=== PATIENT | female | born 1965 | race African-American/Black ===

== ENCOUNTER 2021-01-23 15:37 | Inpatient (IN) ==
[2021-01-23] MEDS ORDERED: SODIUM CHLORIDE 0.9% 1,000 ML IV STA ×2 (16:23→18:24)
[2021-01-23 17:07] LABS: Basophils % 0.4 % (0.0-0.8); Eosinophils # 0.1 10*3/uL (0.0-0.87); Hemoglobin 13.4 GM/DL (12.0-16.0); Immature Granulocytes % 0.5 %; Immature Granulocytes Absolute 0.05 #; Lymphocytes # 1.8 10*3/uL (1.4-4.0); Lymphocytes % 16.8 % (21.3-54.2); Mean Corpuscular HGB Conc 31.9 GM/DL (32-36); Mean Corpuscular Volume 106.6 FL (87-102); Mean Platelet Volume 10.1 FL (9.6-12.0); Monocytes % 5.1 % (1.7-12.7); NRBC # 0.02 10*3/uL; Neutrophils % 76.2 % (38.7-73.9); Platelet Count 152 T/CUMM (130-400); Red Blood Count 3.94 MC/CUMM (3.8-5.5); Red Cell Distribution Width 13.4 % (9.3-17.3); White Blood Count 10.5 T/CUMM (4-12)
[2021-01-23 17:25] LABS: INR 1.2; Partial Thromboplastin Time 28.8 SECS (23.8-32.1)
[2021-01-23 17:35] LABS: Albumin 3.5 G/DL (3.4-5.0); Bilirubin,Total 0.7 MG/DL (0.20-1.00); Calcium 8.7 MG/DL (8.5-10.1); Osmolality,Calculated 275.5 MOS/KG (273-304); Potassium 3.6 MMOL/L (3.5-5.1); Thyroid Stimulating Hormone 0.301 uIU/ml (0.358-3.74); Total Protein 8.2 G/DL (6.4-8.2)
[2021-01-23] MEDS ORDERED: ALBUTEROL/IPRATROPIUM 3 ML NEB RESP TX STA (17:36)
[2021-01-23] MEDS ORDERED: cefTRIAXone 1,000 MG in SODIUM CHLORIDE 0.9% 100 ML IV STA (17:46)
[2021-01-23 18:02] LABS: ABG Base Excess 9.2 MMOL/L (-2.5-2.5); ABG HCO3 43.6 MMOL/L (20-26); ABG Oxygen Saturation 97.8 % (95-100); ABG TCO2 47.7 MMOL/L (23-27)
[2021-01-23] MEDS ORDERED: NOREPINEPHRINE 4 MG/4 ML VIAL IV ONE ×2 (18:02→21:01)
[2021-01-23 18:06] LABS: ABG PCO2 133.7 MM HG (35-48)
[2021-01-23] MEDS: NOREPINEPHRINE 8 MG in SODIUM CHLORIDE 0.9% 242 ML IV PRN (18:07)
[2021-01-23 18:09] LABS: PT Patient Result 12.8 SECS (10.5-12.0)
[2021-01-23] MEDS ORDERED: VECURONIUM 10 MG VIAL IV STA (18:24)
[2021-01-23] MEDS ORDERED: PIPERACILLIN/TAZOBACTAM 3,375 MG in SODIUM CHLORIDE 0.9% 100 ML IV STA (18:24)
[2021-01-23] MEDS ORDERED: ETOMIDATE 20 MG/10 ML VIAL IV STA (18:24)
[2021-01-23] MEDS ORDERED: VECURONIUM 10 MG VIAL IV ONE (18:25)
[2021-01-23] MEDS ORDERED: ETOMIDATE 20 MG/10 ML VIAL IV ONE (18:25)
[2021-01-23] MEDS ORDERED: MAGNESIUM SULF RIDER 2 GM/50 ML PREMIX IV STA (18:29)
[2021-01-23] MEDS ORDERED: ALBUTEROL 2.5 MG/3 ML NEB RESP TX PRN (18:38)
[2021-01-23] MEDS ORDERED: ACETAMINOPHEN 325 MG TABLET PO PRN (18:46)
[2021-01-23] MEDS ORDERED: ONDANSETRON 4 MG/2 ML VIAL IV PRN (18:46)
[2021-01-23] MEDS ORDERED: MAGNESIUM SULF RIDER 4 GM/100 ML PREMIX IV ONE (18:48)
[2021-01-23] MEDS: SODIUM CHLORIDE 0.9% 1,000 ML IV SCH (19:50)
[2021-01-23] MEDS ORDERED: LORazepam 2 MG/1 ML VIAL ONE ×2 (20:02→22:38)
[2021-01-23] MEDS ORDERED: FOSPHENYTOIN 1,000 MG.PE in SODIUM CHLORIDE 0.9% 250 ML IV STA ×2 (20:05→21:20)
[2021-01-23] MEDS ORDERED: levETIRAcetam 500 MG/5 ML VIAL IV ONE (20:11)
[2021-01-23] MEDS ORDERED: propofoL 200 MG/20 ML VIAL IV ONE (20:16)
[2021-01-23 20:19] LABS: ABG Base Excess 4.7 MMOL/L (-2.5-2.5); ABG HCO3 28.6 MMOL/L (20-26); ABG Oxygen Saturation 98.7 % (95-100); ABG PH 7.298 (7.35-7.45); ABG TCO2 29.9 MMOL/L (23-27)
[2021-01-23] MEDS ORDERED: levETIRAcetam 250 MG TABLET PO SCH (21:00)
[2021-01-23] MEDS ORDERED: LORazepam 2 MG/1 ML VIAL IV ONE ×2 (22:40→23:19)
[2021-01-23] MEDS: ENOXAPARIN 30 MG/0.3 ML SYRINGE SUBCUT SCH (22:56)
[2021-01-23 23:20] LABS: Bacteria,Urine Occasional /HPF (Few); Bilirubin,Urine Negative (Negative); Blood, Urine Small mg/dL (Negative); Glucose,Urine (UA) Negative (Negative); Hyaline Casts,Urine 1 /LPF (0-3); Ketones,Urine Negative (Negative); Mucus,Urine Occasional /LPF (Occasional); Nitrite,Urine Negative (Negative); Protein,Urine 100 MG/DL; RBC,Urine 1 /HPF (0-4); Squamous Epithelial Cell,Urine Occasional /HPF (0-10); Urine Appearance CLEAR (Clear); Urine Color Yellow (Yellow); Urine Specific Gravity 1.011 (1.001-1.035); Urine Urobilinogen < 2.0 EU/DL (<2.0)
[2021-01-24] MEDS: VALPROIC ACID INJ 1,000 MG in SODIUM CHLORIDE 0.9% 100 ML IV SCH ×2 (00:31→12:27)
[2021-01-24 00:41] LABS: ABG Base Excess 5.2 MMOL/L (-2.5-2.5); ABG HCO3 29.1 MMOL/L (20-26); ABG Oxygen Saturation 99.9 % (95-100); ABG PCO2 61.8 MM HG (35-48); ABG PH 7.336 (7.35-7.45); ABG TCO2 29.4 MMOL/L (23-27)
[2021-01-24] MEDS: PHENYTOIN 100 MG/2 ML VIAL IV SCH ×3 (01:03→16:19)
[2021-01-24] MEDS: NOREPINEPHRINE 8 MG in SODIUM CHLORIDE 0.9% 242 ML IV PRN ×3 (01:24→13:08)
[2021-01-24] MEDS: methylPREDNISolone SOD SUC 40 MG/1 ML VIAL IV SCH ×4 (01:45→20:28)
[2021-01-24] MEDS: guaiFENesin/DM ER 600-30 MG TABLET PO SCH ×3 (01:46→20:28)
[2021-01-24] MEDS: traZODone 50 MG TABLET PO SCH ×2 (01:46→20:29)
[2021-01-24] MEDS: FAMOTIDINE 20 MG/2 ML VIAL IV SCH ×3 (01:47→20:28)
[2021-01-24] MEDS: AZITHROMYCIN INJ 500 MG in SODIUM CHLORIDE 0.9% 250 ML IV SCH ×2 (01:48→20:37)
[2021-01-24] MEDS ORDERED: LACOSAMIDE INJ 200 MG in SODIUM CHLORIDE 0.9% 50 ML IV ONE (02:00)
[2021-01-24] MEDS: SODIUM CHLORIDE 0.9% 1,000 ML IV SCH ×4 (02:13→23:01)
[2021-01-24] MEDS ORDERED: PHENOBARBITAL IV ONE (03:00)
[2021-01-24] MEDS ORDERED: SODIUM CHLORIDE 0.9% IV ONE (03:00)
[2021-01-24 04:01] LABS: Barbiturates Screen,Urine Negative (Negative); Benzodiazepines Screen,Urine Positive (Negative); Cannabinoid Screen,Urine Negative (Negative); Opiate Screen,Urine Negative (Negative); Phencyclidine Screen,Urine Negative (Negative)
[2021-01-24 04:06] LABS: ABG Base Excess 7.7 MMOL/L (-2.5-2.5); ABG HCO3 34.8 MMOL/L (20-26); ABG Oxygen Saturation 96.5 % (95-100); ABG PCO2 61.1 MM HG (35-48); ABG PH 7.374 (7.35-7.45); ABG PO2 93.7 MM HG (80-95); ABG TCO2 36.7 MMOL/L (23-27)
[2021-01-24 04:20] LABS: Basophils % 0.4 % (0.0-0.8); Eosinophils % 0.4 % (0.00-10.9); Hematocrit 38.1 VOL% (35.7-47.0); Hemoglobin 12.2 GM/DL (12.0-16.0); Immature Granulocytes % 0.6 %; Immature Granulocytes Absolute 0.06 #; Lymphocytes # 1.8 10*3/uL (1.4-4.0); Lymphocytes % 17.7 % (21.3-54.2); Mean Corpuscular Volume 105.5 FL (87-102); Mean Platelet Volume 10.2 FL (9.6-12.0); Monocytes % 6.2 % (1.7-12.7); NRBC # 0.03 10*3/uL; Neutrophils % 74.7 % (38.7-73.9); Platelet Count 145 T/CUMM (130-400); Red Blood Count 3.61 MC/CUMM (3.8-5.5); Red Cell Distribution Width 13.4 % (9.3-17.3); White Blood Count 10.2 T/CUMM (4-12)
[2021-01-24 04:30] LABS: PT Patient Result 11.1 SECS (10.5-12.0)
[2021-01-24 04:37] LABS: Albumin 2.8 G/DL (3.4-5.0); Bilirubin,Total 0.7 MG/DL (0.20-1.00); Calcium 7.8 MG/DL (8.5-10.1); Osmolality,Calculated 280.2 MOS/KG (273-304); Risk Ratio 6.72; Total Protein 7.6 G/DL (6.4-8.2); VLDL Cholesterol 40.6 MG/DL
[2021-01-24] MEDS: POTASSIUM BICARB EFFERVESCENT 20 MEQ TAB.EFF PER TUBE PRN ×4 (06:00→17:27)
[2021-01-24] MEDS ORDERED: MAGNESIUM SULF RIDER 4 GM/100 ML PREMIX IV PRN (07:31)
[2021-01-24] MEDS ORDERED: EMTRICITAB RILPIVIR TENOFO ALA PO SCH (09:00)
[2021-01-24] MEDS: MIDAZOLAM 100 MG in SODIUM CHLORIDE 0.9% 80 ML IV PRN (11:42)
[2021-01-24 14:17] LABS: ABG PH 7.131 (7.35-7.45)
[2021-01-24 17:03] LABS: Folate 23.26 NG/ML (5.38-24.0)
[2021-01-24] MEDS: cefTRIAXone 1,000 MG in SODIUM CHLORIDE 0.9% 100 ML IV SCH (17:27)
[2021-01-24] MEDS: ENOXAPARIN 30 MG/0.3 ML SYRINGE SUBCUT SCH (20:28)
[2021-01-25] MEDS: VALPROIC ACID INJ 1,000 MG in SODIUM CHLORIDE 0.9% 100 ML IV SCH ×2 (00:01→11:52)
[2021-01-25 00:29] LABS: Potassium 3.5 MMOL/L (3.5-5.1)
[2021-01-25] MEDS: PHENYTOIN 100 MG/2 ML VIAL IV SCH ×3 (00:54→18:13)
[2021-01-25] MEDS: POTASSIUM BICARB EFFERVESCENT 20 MEQ TAB.EFF PER TUBE PRN ×2 (01:09→03:11)
[2021-01-25] MEDS: methylPREDNISolone SOD SUC 40 MG/1 ML VIAL IV SCH ×3 (03:11→20:52)
[2021-01-25 04:40] LABS: ABG Base Excess 10.5 MMOL/L (-2.5-2.5); ABG HCO3 34.2 MMOL/L (20-26); ABG Oxygen Saturation 96.1 % (95-100); ABG PCO2 54.3 MM HG (35-48); ABG PH 7.442 (7.35-7.45); ABG PO2 87.7 MM HG (80-95); ABG TCO2 31.9 MMOL/L (23-27); Basophils % 0.1 % (0.0-0.8); Hematocrit 35.8 VOL% (35.7-47.0); Hemoglobin 11.3 GM/DL (12.0-16.0); Immature Granulocytes % 0.8 %; Immature Granulocytes Absolute 0.07 #; Lymphocytes # 1.3 10*3/uL (1.4-4.0); Lymphocytes % 15.6 % (21.3-54.2); Mean Corpuscular HGB Conc 31.6 GM/DL (32-36); Mean Corpuscular Volume 104.7 FL (87-102); Mean Platelet Volume 10.4 FL (9.6-12.0); Monocytes % 4.3 % (1.7-12.7); NRBC # 0.02 10*3/uL; Neutrophils % 79.2 % (38.7-73.9); Platelet Count 144 T/CUMM (130-400); Red Blood Count 3.42 MC/CUMM (3.8-5.5); Red Cell Distribution Width 13.5 % (9.3-17.3); White Blood Count 8.3 T/CUMM (4-12)
[2021-01-25] MEDS: MIDAZOLAM 100 MG in SODIUM CHLORIDE 0.9% 80 ML IV PRN (04:40)
[2021-01-25 05:04] LABS: Albumin 2.5 G/DL (3.4-5.0); Bilirubin,Total 0.5 MG/DL (0.20-1.00); Calcium 8.1 MG/DL (8.5-10.1); Osmolality,Calculated 279.8 MOS/KG (273-304); Total Protein 7.5 G/DL (6.4-8.2)
[2021-01-25] MEDS: EMTRICITAB RILPIVIR TENOFO ALA PO SCH (08:55)
[2021-01-25] MEDS: FAMOTIDINE 20 MG/2 ML VIAL IV SCH ×2 (08:55→20:53)
[2021-01-25] MEDS: SODIUM CHLORIDE 0.9% 1,000 ML IV SCH ×2 (09:01→10:39)
[2021-01-25] MEDS ORDERED: SODIUM PHOSPHATE INJ 30 MMOL in SODIUM CHLORIDE 0.9% 250 ML IV ONE (10:00)
[2021-01-25] MEDS: INSULIN LISPRO 100 UNIT/ML SUBCUT SCH ×2 (11:40→18:18)
[2021-01-25] MEDS: AZITHROMYCIN 40 MG/ML 15 ML/BOTTLE PO SCH (11:51)
[2021-01-25] MEDS: cefTRIAXone 1,000 MG in SODIUM CHLORIDE 0.9% 100 ML IV SCH (18:14)
[2021-01-25 18:35] LABS: Phenytoin (Dilantin) 4.9 UG/ML (10-20)
[2021-01-25] MEDS: traZODone 50 MG TABLET PO SCH (20:52)
[2021-01-25] MEDS: ENOXAPARIN 40 MG/0.4 ML SYRINGE SUBCUT SCH (20:52)
[2021-01-26] MEDS: VALPROIC ACID INJ 1,000 MG in SODIUM CHLORIDE 0.9% 100 ML IV SCH ×2 (00:48→12:27)
[2021-01-26] MEDS: INSULIN LISPRO 100 UNIT/ML SUBCUT SCH ×4 (00:48→18:55)
[2021-01-26] MEDS: PHENYTOIN 100 MG/2 ML VIAL IV SCH ×3 (00:49→16:49)
[2021-01-26 04:16] LABS: Basophils % 0.3 % (0.0-0.8); Hematocrit 33.8 VOL% (35.7-47.0); Hemoglobin 10.7 GM/DL (12.0-16.0); Immature Granulocytes % 0.6 %; Immature Granulocytes Absolute 0.04 #; Lymphocytes # 1.7 10*3/uL (1.4-4.0); Lymphocytes % 25.1 % (21.3-54.2); Mean Corpuscular HGB Conc 31.7 GM/DL (32-36); Mean Corpuscular Volume 105.6 FL (87-102); Monocytes % 5.3 % (1.7-12.7); Neutrophils % 68.7 % (38.7-73.9); Platelet Count 152 T/CUMM (130-400); Red Cell Distribution Width 13.7 % (9.3-17.3); White Blood Count 6.6 T/CUMM (4-12)
[2021-01-26] MEDS: NOREPINEPHRINE 8 MG in SODIUM CHLORIDE 0.9% 242 ML IV PRN (04:33)
[2021-01-26] MEDS: methylPREDNISolone SOD SUC 40 MG/1 ML VIAL IV SCH ×3 (04:33→22:00)
[2021-01-26 04:45] LABS: Calcium 8.9 MG/DL (8.5-10.1); Osmolality,Calculated 286.3 MOS/KG (273-304); Potassium 3.7 MMOL/L (3.5-5.1)
[2021-01-26 05:00] LABS: ABG Base Excess 9.8 MMOL/L (-2.5-2.5); ABG HCO3 33.5 MMOL/L (20-26); ABG Oxygen Saturation 96.5 % (95-100); ABG PH 7.464 (7.35-7.45); ABG PO2 89.4 MM HG (80-95); ABG TCO2 31.5 MMOL/L (23-27)
[2021-01-26 06:20] LABS: Hypochromia Slight; Platelet Estimate Normal
[2021-01-26] MEDS: EMTRICITAB RILPIVIR TENOFO ALA PO SCH (08:19)
[2021-01-26] MEDS: FAMOTIDINE 20 MG/2 ML VIAL IV SCH ×2 (08:22→21:52)
[2021-01-26] MEDS: MIDAZOLAM 100 MG in SODIUM CHLORIDE 0.9% 80 ML IV PRN (09:18)
[2021-01-26] MEDS: AZITHROMYCIN 40 MG/ML 15 ML/BOTTLE PO SCH (09:20)
[2021-01-26] MEDS ORDERED: SODIUM PHOSPHATE INJ 30 MMOL in SODIUM CHLORIDE 0.9% 250 ML IV ONE (11:00)
[2021-01-26] MEDS: MEROPENEM 500 MG in SODIUM CHLORIDE 0.9% 100 ML IV SCH ×2 (12:28→17:31)
[2021-01-26 16:01] LABS: % CD4 (T Cells) 33 % (32-64); % CD8 (T Cells) 51 % (11-40); 4/8 Ratio 0.6 (>=0.9)
[2021-01-26] MEDS: ATORVASTATIN 10 MG TABLET PO SCH (21:50)
[2021-01-26] MEDS: traZODone 50 MG TABLET PO SCH (21:51)
[2021-01-26] MEDS: ENOXAPARIN 40 MG/0.4 ML SYRINGE SUBCUT SCH (21:59)
[2021-01-27] MEDS: INSULIN LISPRO 100 UNIT/ML SUBCUT SCH ×4 (00:54→17:45)
[2021-01-27] MEDS: PHENYTOIN 100 MG/2 ML VIAL IV SCH ×4 (00:56→23:44)
[2021-01-27] MEDS: MEROPENEM 500 MG in SODIUM CHLORIDE 0.9% 100 ML IV SCH ×2 (00:57→05:58)
[2021-01-27] MEDS: VALPROIC ACID INJ 1,000 MG in SODIUM CHLORIDE 0.9% 100 ML IV SCH ×3 (00:57→23:44)
[2021-01-27] MEDS: MIDAZOLAM 100 MG in SODIUM CHLORIDE 0.9% 80 ML IV PRN (03:26)
[2021-01-27] MEDS: methylPREDNISolone SOD SUC 40 MG/1 ML VIAL IV SCH ×3 (04:15→23:43)
[2021-01-27 04:58] LABS: ABG Base Excess 9.8 MMOL/L (-2.5-2.5); ABG HCO3 33.5 MMOL/L (20-26); ABG Oxygen Saturation 94.7 % (95-100); ABG PCO2 52.2 MM HG (35-48); ABG PH 7.444 (7.35-7.45); ABG PO2 81.3 MM HG (80-95); ABG TCO2 31.6 MMOL/L (23-27)
[2021-01-27 04:59] LABS: Basophils % 0.3 % (0.0-0.8); Eosinophils % 0.2 % (0.00-10.9); Hematocrit 34.3 VOL% (35.7-47.0); Hemoglobin 10.9 GM/DL (12.0-16.0); Immature Granulocytes % 0.3 %; Immature Granulocytes Absolute 0.02 #; Lymphocytes # 1.5 10*3/uL (1.4-4.0); Lymphocytes % 23.4 % (21.3-54.2); Mean Corpuscular HGB Conc 31.8 GM/DL (32-36); Mean Corpuscular Volume 106.9 FL (87-102); Mean Platelet Volume 10.4 FL (9.6-12.0); Monocytes % 7.8 % (1.7-12.7); Platelet Count 158 T/CUMM (130-400); Red Blood Count 3.21 MC/CUMM (3.8-5.5); Red Cell Distribution Width 13.8 % (9.3-17.3); White Blood Count 6.4 T/CUMM (4-12)
[2021-01-27 05:22] LABS: Calcium 9.7 MG/DL (8.5-10.1); Osmolality,Calculated 286.3 MOS/KG (273-304); Potassium 3.6 MMOL/L (3.5-5.1)
[2021-01-27] MEDS: POTASSIUM BICARB EFFERVESCENT 20 MEQ TAB.EFF PER TUBE PRN ×2 (08:36→10:30)
[2021-01-27] MEDS: EMTRICITAB RILPIVIR TENOFO ALA PO SCH (08:37)
[2021-01-27] MEDS: FAMOTIDINE 20 MG/2 ML VIAL IV SCH ×2 (08:37→23:41)
[2021-01-27] MEDS: AZITHROMYCIN 40 MG/ML 15 ML/BOTTLE PO SCH (08:38)
[2021-01-27] MEDS: LEVOFLOXACIN INJ 750 MG/150 ML PREMIX IV SCH (08:59)
[2021-01-27 21:56] LABS: Pyridoxal 5-Phosphate (PLP), P 3 mcg/L (5-50)
[2021-01-27] MEDS: ENOXAPARIN 40 MG/0.4 ML SYRINGE SUBCUT SCH (23:42)
[2021-01-27] MEDS: ATORVASTATIN 10 MG TABLET PO SCH (23:43)
[2021-01-27] MEDS: traZODone 50 MG TABLET PO SCH (23:43)
[2021-01-28] MEDS: INSULIN LISPRO 100 UNIT/ML SUBCUT SCH ×4 (00:54→17:35)
[2021-01-28 05:50] LABS: ABG HCO3 31.8 MMOL/L (20-26); ABG Oxygen Saturation 95.2 % (95-100); ABG PCO2 52.4 MM HG (35-48); ABG PO2 84.1 MM HG (80-95); ABG TCO2 30.6 MMOL/L (23-27)
[2021-01-28 05:53] LABS: Basophils % 0.2 % (0.0-0.8); Eosinophils # 0.1 10*3/uL (0.0-0.87); Hematocrit 34.7 VOL% (35.7-47.0); Hemoglobin 10.8 GM/DL (12.0-16.0); Immature Granulocytes % 0.6 %; Immature Granulocytes Absolute 0.03 #; Lymphocytes # 0.8 10*3/uL (1.4-4.0); Lymphocytes % 14.9 % (21.3-54.2); Mean Corpuscular HGB Conc 31.1 GM/DL (32-36); Mean Corpuscular Volume 106.4 FL (87-102); Mean Platelet Volume 10.5 FL (9.6-12.0); Monocytes % 5.3 % (1.7-12.7); Platelet Count 168 T/CUMM (130-400); Red Blood Count 3.26 MC/CUMM (3.8-5.5); Red Cell Distribution Width 13.8 % (9.3-17.3); White Blood Count 5.2 T/CUMM (4-12)
[2021-01-28] MEDS: methylPREDNISolone SOD SUC 40 MG/1 ML VIAL IV SCH ×3 (05:55→20:52)
[2021-01-28 06:08] LABS: Calcium 10.2 MG/DL (8.5-10.1); Osmolality,Calculated 288.3 MOS/KG (273-304); Potassium 4.3 MMOL/L (3.5-5.1)
[2021-01-28] MEDS ORDERED: SCOPOLAMINE 1.5 MG PATCH TRANSDERM ONE (07:40)
[2021-01-28] MEDS: FAMOTIDINE 20 MG/2 ML VIAL IV SCH ×2 (08:56→20:58)
[2021-01-28] MEDS: PHENYTOIN 100 MG/2 ML VIAL IV SCH ×2 (08:56→15:56)
[2021-01-28] MEDS: LORazepam 2 MG/1 ML VIAL IV PRN ×4 (09:00→19:52)
[2021-01-28] MEDS: EMTRICITAB RILPIVIR TENOFO ALA PO SCH (09:12)
[2021-01-28] MEDS: LEVOFLOXACIN INJ 750 MG/150 ML PREMIX IV SCH (09:12)
[2021-01-28] MEDS: MIDAZOLAM 100 MG in SODIUM CHLORIDE 0.9% 80 ML IV PRN (10:32)
[2021-01-28] MEDS: DEXMEDETOMIDINE 200 MCG in SODIUM CHLORIDE 0.9% 48 ML IV PRN ×6 (11:02→22:33)
[2021-01-28] MEDS: VALPROIC ACID INJ 1,000 MG in SODIUM CHLORIDE 0.9% 100 ML IV SCH (12:09)
[2021-01-28] MEDS: ACETYLCYSTEINE 20% 800 MG/4 ML VIAL RESP TX SCH (14:30)
[2021-01-28] MEDS: ALBUTEROL/IPRATROPIUM 3 ML NEB RESP TX PRN (14:30)
[2021-01-28] MEDS: MAGNESIUM SULF RIDER 2 GM/50 ML PREMIX IV PRN (15:39)
[2021-01-28] MEDS: traZODone 50 MG TABLET PO SCH (20:56)
[2021-01-28] MEDS: ATORVASTATIN 10 MG TABLET PO SCH (20:56)
[2021-01-28] MEDS: ENOXAPARIN 40 MG/0.4 ML SYRINGE SUBCUT SCH (20:57)
[2021-01-29] MEDS: ALBUTEROL/IPRATROPIUM 3 ML NEB RESP TX SCH ×3 (00:04→19:40)
[2021-01-29] MEDS: ACETYLCYSTEINE 20% 800 MG/4 ML VIAL RESP TX SCH ×2 (00:04→07:10)
[2021-01-29] MEDS: LORazepam 2 MG/1 ML VIAL IV PRN ×5 (00:17→20:21)
[2021-01-29] MEDS: PHENYTOIN 100 MG/2 ML VIAL IV SCH ×3 (00:41→16:55)
[2021-01-29] MEDS: VALPROIC ACID INJ 1,000 MG in SODIUM CHLORIDE 0.9% 100 ML IV SCH ×3 (00:42→23:45)
[2021-01-29] MEDS: INSULIN LISPRO 100 UNIT/ML SUBCUT SCH ×4 (00:43→18:09)
[2021-01-29] MEDS: DEXMEDETOMIDINE 200 MCG in SODIUM CHLORIDE 0.9% 48 ML IV PRN ×7 (00:47→13:41)
[2021-01-29] MEDS: methylPREDNISolone SOD SUC 40 MG/1 ML VIAL IV SCH ×3 (03:54→21:04)
[2021-01-29 04:23] LABS: Basophils % 0.1 % (0.0-0.8); Eosinophils # 0.2 10*3/uL (0.0-0.87); Eosinophils % 2.7 % (0.00-10.9); Hematocrit 32.6 VOL% (35.7-47.0); Hemoglobin 10.1 GM/DL (12.0-16.0); Immature Granulocytes % 0.4 %; Immature Granulocytes Absolute 0.03 #; Lymphocytes # 1.3 10*3/uL (1.4-4.0); Lymphocytes % 17.2 % (21.3-54.2); Mean Corpuscular Volume 107.6 FL (87-102); Mean Platelet Volume 10.5 FL (9.6-12.0); Monocytes % 6.4 % (1.7-12.7); Neutrophils % 73.2 % (38.7-73.9); Platelet Count 169 T/CUMM (130-400); Red Blood Count 3.03 MC/CUMM (3.8-5.5); Red Cell Distribution Width 13.6 % (9.3-17.3); White Blood Count 7.4 T/CUMM (4-12)
[2021-01-29 04:41] LABS: Calcium 9.5 MG/DL (8.5-10.1); Osmolality,Calculated 290.1 MOS/KG (273-304); Potassium 4.6 MMOL/L (3.5-5.1)
[2021-01-29 06:48] LABS: ABG Base Excess 7.1 MMOL/L (-2.5-2.5); ABG HCO3 30.7 MMOL/L (20-26); ABG Oxygen Saturation 90.7 % (95-100); ABG PH 7.424 (7.35-7.45); ABG PO2 67.4 MM HG (80-95); ABG TCO2 29.4 MMOL/L (23-27); Allen Test Positive; Pt O2 Delivery Device Ventilator
[2021-01-29 07:17] LABS: ABG Base Excess 6.7 MMOL/L (-2.5-2.5); ABG HCO3 30.4 MMOL/L (20-26); ABG Oxygen Saturation 90.8 % (95-100); ABG PCO2 49.3 MM HG (35-48); ABG PH 7.424 (7.35-7.45); ABG PO2 67.5 MM HG (80-95); ABG TCO2 29.1 MMOL/L (23-27)
[2021-01-29] MEDS: FAMOTIDINE 20 MG/2 ML VIAL IV SCH ×2 (09:14→21:04)
[2021-01-29] MEDS: LEVOFLOXACIN INJ 750 MG/150 ML PREMIX IV SCH (09:14)
[2021-01-29] MEDS: EMTRICITAB RILPIVIR TENOFO ALA PO SCH (09:17)
[2021-01-29] MEDS: DORNASE ALFA 2.5 MG/2.5 ML VIAL RESP TX SCH ×2 (13:25→19:40)
[2021-01-29] MEDS: ALBUTEROL/IPRATROPIUM 3 ML NEB RESP TX PRN (13:25)
[2021-01-29] MEDS: DEXMEDETOMIDINE 400 MCG in SODIUM CHLORIDE 0.9% 96 ML IV PRN ×2 (16:12→20:05)
[2021-01-29] MEDS: ATORVASTATIN 10 MG TABLET PO SCH (21:04)
[2021-01-29] MEDS: traZODone 50 MG TABLET PO SCH (21:04)
[2021-01-30] MEDS: INSULIN LISPRO 100 UNIT/ML SUBCUT SCH ×4 (00:11→17:40)
[2021-01-30] MEDS: DEXMEDETOMIDINE 400 MCG in SODIUM CHLORIDE 0.9% 96 ML IV PRN ×6 (00:11→21:20)
[2021-01-30] MEDS: PHENYTOIN 100 MG/2 ML VIAL IV SCH ×3 (00:11→16:05)
[2021-01-30] MEDS: LORazepam 2 MG/1 ML VIAL IV PRN ×4 (01:14→21:20)
[2021-01-30] MEDS: ALBUTEROL/IPRATROPIUM 3 ML NEB RESP TX SCH ×4 (01:50→19:20)
[2021-01-30 04:24] LABS: ABG Base Excess 6.1 MMOL/L (-2.5-2.5); ABG HCO3 29.6 MMOL/L (20-26); ABG Oxygen Saturation 76.6 % (95-100); ABG PH 7.401 (7.35-7.45); ABG PO2 49.2 MM HG (80-95)
[2021-01-30] MEDS: methylPREDNISolone SOD SUC 40 MG/1 ML VIAL IV SCH ×3 (04:43→21:00)
[2021-01-30 05:26] LABS: Basophils % 0.3 % (0.0-0.8); Eosinophils # 0.2 10*3/uL (0.0-0.87); Eosinophils % 2.5 % (0.00-10.9); Hematocrit 31.4 VOL% (35.7-47.0); Hemoglobin 9.9 GM/DL (12.0-16.0); Immature Granulocytes % 0.6 %; Immature Granulocytes Absolute 0.05 #; Lymphocytes # 1.5 10*3/uL (1.4-4.0); Lymphocytes % 18.7 % (21.3-54.2); Mean Corpuscular HGB Conc 31.5 GM/DL (32-36); Mean Corpuscular Volume 107.5 FL (87-102); Mean Platelet Volume 10.9 FL (9.6-12.0); Monocytes % 5.5 % (1.7-12.7); Neutrophils % 72.4 % (38.7-73.9); Platelet Count 207 T/CUMM (130-400); Red Blood Count 2.92 MC/CUMM (3.8-5.5); Red Cell Distribution Width 13.5 % (9.3-17.3); White Blood Count 7.9 T/CUMM (4-12)
[2021-01-30 05:50] LABS: Calcium 9.6 MG/DL (8.5-10.1); Osmolality,Calculated 279.8 MOS/KG (273-304); Potassium 4.5 MMOL/L (3.5-5.1)
[2021-01-30] MEDS: MAGNESIUM SULF RIDER 2 GM/50 ML PREMIX IV PRN (06:24)
[2021-01-30] MEDS: DORNASE ALFA 2.5 MG/2.5 ML VIAL RESP TX SCH ×2 (08:02→19:25)
[2021-01-30] MEDS: FAMOTIDINE 20 MG/2 ML VIAL IV SCH ×2 (09:00→21:45)
[2021-01-30] MEDS: EMTRICITAB RILPIVIR TENOFO ALA PO SCH (09:05)
[2021-01-30] MEDS: LEVOFLOXACIN INJ 750 MG/150 ML PREMIX IV SCH (09:05)
[2021-01-30] MEDS: GENTAMICIN INJ 160 MG in SODIUM CHLORIDE 0.9% 100 ML IV SCH ×2 (09:05→22:05)
[2021-01-30] MEDS ORDERED: ROCURONIUM 100 MG/10 ML VIAL IV ONE ×2 (10:52→11:00)
[2021-01-30] MEDS: VALPROIC ACID INJ 1,000 MG in SODIUM CHLORIDE 0.9% 100 ML IV SCH (12:20)
[2021-01-30] MEDS: traZODone 50 MG TABLET PO SCH (21:42)
[2021-01-30] MEDS: ATORVASTATIN 10 MG TABLET PO SCH (21:43)
[2021-01-30] MEDS: ENOXAPARIN 40 MG/0.4 ML SYRINGE SUBCUT SCH (21:44)
[2021-01-31] MEDS: ALBUTEROL/IPRATROPIUM 3 ML NEB RESP TX SCH ×4 (00:02→19:59)
[2021-01-31] MEDS: INSULIN LISPRO 100 UNIT/ML SUBCUT SCH ×4 (00:32→17:35)
[2021-01-31] MEDS: VALPROIC ACID INJ 1,000 MG in SODIUM CHLORIDE 0.9% 100 ML IV SCH ×2 (00:32→12:20)
[2021-01-31] MEDS: PHENYTOIN 100 MG/2 ML VIAL IV SCH ×4 (00:50→21:36)
[2021-01-31] MEDS: DEXMEDETOMIDINE 400 MCG in SODIUM CHLORIDE 0.9% 96 ML IV PRN ×5 (01:50→21:30)
[2021-01-31 03:44] LABS: ABG Base Excess 5.4 MMOL/L (-2.5-2.5); ABG HCO3 29.6 MMOL/L (20-26); ABG Oxygen Saturation 93.6 % (95-100); ABG PCO2 41.9 MM HG (35-48); ABG PH 7.467 (7.35-7.45); ABG PO2 70.2 MM HG (80-95); ABG TCO2 30.9 MMOL/L (23-27)
[2021-01-31 05:00] LABS: Basophils % 0.2 % (0.0-0.8); Eosinophils # 0.1 10*3/uL (0.0-0.87); Eosinophils % 1.2 % (0.00-10.9); Hemoglobin 10.2 GM/DL (12.0-16.0); Immature Granulocytes Absolute 0.06 #; Lymphocytes % 15.8 % (21.3-54.2); Mean Corpuscular HGB Conc 31.9 GM/DL (32-36); Mean Corpuscular Volume 104.6 FL (87-102); Mean Platelet Volume 10.7 FL (9.6-12.0); Monocytes % 6.9 % (1.7-12.7); Neutrophils % 74.9 % (38.7-73.9); Platelet Count 231 T/CUMM (130-400); Red Blood Count 3.06 MC/CUMM (3.8-5.5); Red Cell Distribution Width 13.3 % (9.3-17.3); White Blood Count 6.1 T/CUMM (4-12)
[2021-01-31] MEDS: methylPREDNISolone SOD SUC 40 MG/1 ML VIAL IV SCH ×3 (05:00→21:32)
[2021-01-31 05:17] LABS: Calcium 9.5 MG/DL (8.5-10.1); Osmolality,Calculated 278.8 MOS/KG (273-304); Potassium 4.2 MMOL/L (3.5-5.1)
[2021-01-31 05:26] LABS: Phenytoin (Dilantin) 2.4 UG/ML (10-20)
[2021-01-31] MEDS: LEVOFLOXACIN INJ 750 MG/150 ML PREMIX IV SCH (07:35)
[2021-01-31] MEDS: FAMOTIDINE 20 MG/2 ML VIAL IV SCH ×2 (07:35→21:47)
[2021-01-31] MEDS: MAGNESIUM SULF RIDER 2 GM/50 ML PREMIX IV PRN (07:35)
[2021-01-31] MEDS: DORNASE ALFA 2.5 MG/2.5 ML VIAL RESP TX SCH ×2 (07:37→20:15)
[2021-01-31] MEDS: EMTRICITAB RILPIVIR TENOFO ALA PO SCH (07:40)
[2021-01-31] MEDS: GENTAMICIN INJ 160 MG in SODIUM CHLORIDE 0.9% 100 ML IV SCH ×2 (09:15→21:45)
[2021-01-31] MEDS: LORazepam 2 MG/1 ML VIAL IV PRN (11:10)
[2021-01-31 13:28] LABS: Lactic Acid 1.7 MMOL/L (0.4-2.0)
[2021-01-31 20:27] LABS: Phenytoin Total Serum (MAYO) 2.3 mcg/mL
[2021-01-31] MEDS: traZODone 50 MG TABLET PO SCH (21:33)
[2021-01-31] MEDS: ENOXAPARIN 40 MG/0.4 ML SYRINGE SUBCUT SCH (21:44)
[2021-01-31] MEDS: ATORVASTATIN 10 MG TABLET PO SCH (21:47)
[2021-02-01] MEDS: DEXMEDETOMIDINE 400 MCG in SODIUM CHLORIDE 0.9% 96 ML IV PRN ×6 (01:31→21:41)
[2021-02-01] MEDS: ALBUTEROL/IPRATROPIUM 3 ML NEB RESP TX SCH ×4 (01:40→19:45)
[2021-02-01] MEDS: VALPROIC ACID INJ 1,000 MG in SODIUM CHLORIDE 0.9% 100 ML IV SCH ×2 (01:42→11:41)
[2021-02-01] MEDS: INSULIN LISPRO 100 UNIT/ML SUBCUT SCH ×4 (01:43→18:22)
[2021-02-01 04:08] LABS: ABG Base Excess 4.4 MMOL/L (-2.5-2.5); ABG HCO3 28.4 MMOL/L (20-26); ABG Oxygen Saturation 93.8 % (95-100); ABG PCO2 44.1 MM HG (35-48); ABG PO2 75.2 MM HG (80-95); ABG TCO2 26.9 MMOL/L (23-27)
[2021-02-01] MEDS: methylPREDNISolone SOD SUC 40 MG/1 ML VIAL IV SCH ×3 (04:40→20:15)
[2021-02-01 05:25] LABS: Basophils % 0.1 % (0.0-0.8); Eosinophils % 0.4 % (0.00-10.9); Hematocrit 24.4 VOL% (35.7-47.0); Immature Granulocytes % 0.8 %; Immature Granulocytes Absolute 0.08 #; Lymphocytes # 1.1 10*3/uL (1.4-4.0); Lymphocytes % 10.4 % (21.3-54.2); Mean Corpuscular HGB Conc 33.2 GM/DL (32-36); Mean Corpuscular Volume 103.4 FL (87-102); Mean Platelet Volume 11.1 FL (9.6-12.0); Monocytes % 7.8 % (1.7-12.7); Neutrophils % 80.5 % (38.7-73.9); Platelet Count 254 T/CUMM (130-400); Red Cell Distribution Width 13.6 % (9.3-17.3)
[2021-02-01 05:26] LABS: Red Blood Count 2.36 MC/CUMM (3.8-5.5); White Blood Count 10.6 T/CUMM (4-12)
[2021-02-01 05:27] LABS: Hemoglobin 8.1 GM/DL (12.0-16.0)
[2021-02-01 05:39] LABS: Eosinophils 1 % (0-10); Hypochromia Slight; Lymphocytes 9 % (20-55); Platelet Estimate Normal; Segmented Neutrophils 80 % (50-85); Total Cells Counted 100
[2021-02-01 05:45] LABS: Calcium 9.3 MG/DL (8.5-10.1); Osmolality,Calculated 286.4 MOS/KG (273-304); Potassium 4.3 MMOL/L (3.5-5.1)
[2021-02-01] MEDS: DORNASE ALFA 2.5 MG/2.5 ML VIAL RESP TX SCH ×2 (07:26→20:00)
[2021-02-01] MEDS: LEVOFLOXACIN INJ 750 MG/150 ML PREMIX IV SCH (08:04)
[2021-02-01] MEDS: PHENYTOIN 100 MG/2 ML VIAL IV SCH ×2 (08:05→20:10)
[2021-02-01] MEDS: FAMOTIDINE 20 MG/2 ML VIAL IV SCH ×2 (08:05→21:05)
[2021-02-01] MEDS: EMTRICITAB RILPIVIR TENOFO ALA PO SCH (08:07)
[2021-02-01] MEDS: GENTAMICIN INJ 160 MG in SODIUM CHLORIDE 0.9% 100 ML IV SCH ×2 (08:44→21:07)
[2021-02-01] MEDS: THEOPHYLLINE 5.33 MG/ML 30 ML/BOTTLE PO SCH (16:17)
[2021-02-01] MEDS: ARFORMOTEROL 15 MCG/2 ML NEB RESP TX SCH (19:45)
[2021-02-01] MEDS: LORazepam 2 MG/1 ML VIAL IV PRN (20:04)
[2021-02-01] MEDS: ENOXAPARIN 40 MG/0.4 ML SYRINGE SUBCUT SCH (21:05)
[2021-02-01] MEDS: ATORVASTATIN 10 MG TABLET PO SCH (21:05)
[2021-02-01] MEDS: traZODone 50 MG TABLET PO SCH (21:06)
[2021-02-02] MEDS: FUROSEMIDE 40 MG/4 ML VIAL IV SCH ×3 (00:40→10:54)
[2021-02-02] MEDS: VALPROIC ACID INJ 1,000 MG in SODIUM CHLORIDE 0.9% 100 ML IV SCH ×2 (00:45→12:20)
[2021-02-02] MEDS: INSULIN LISPRO 100 UNIT/ML SUBCUT SCH ×4 (00:46→18:17)
[2021-02-02] MEDS: ALBUTEROL/IPRATROPIUM 3 ML NEB RESP TX SCH ×4 (01:30→19:34)
[2021-02-02] MEDS: DEXMEDETOMIDINE 400 MCG in SODIUM CHLORIDE 0.9% 96 ML IV PRN ×4 (01:38→21:45)
[2021-02-02] MEDS: THEOPHYLLINE 5.33 MG/ML 30 ML/BOTTLE PO SCH ×2 (02:52→14:14)
[2021-02-02] MEDS: LORazepam 2 MG/1 ML VIAL IV PRN ×3 (03:12→10:44)
[2021-02-02 04:16] LABS: ABG Base Excess 4.5 MMOL/L (-2.5-2.5); ABG HCO3 28.5 MMOL/L (20-26); ABG Oxygen Saturation 96.1 % (95-100); ABG PCO2 47.7 MM HG (35-48); ABG PH 7.406 (7.35-7.45); ABG PO2 88.4 MM HG (80-95); ABG TCO2 27.4 MMOL/L (23-27); Allen Test Positive; Pt O2 Delivery Device Ventilator
[2021-02-02 04:40] LABS: Basophils % 0.1 % (0.0-0.8); Eosinophils % 0.2 % (0.00-10.9); Hemoglobin 8.8 GM/DL (12.0-16.0); Immature Granulocytes % 0.7 %; Immature Granulocytes Absolute 0.07 #; Lymphocytes # 0.8 10*3/uL (1.4-4.0); Lymphocytes % 7.9 % (21.3-54.2); Mean Corpuscular HGB Conc 31.4 GM/DL (32-36); Mean Corpuscular Volume 107.3 FL (87-102); Mean Platelet Volume 11.6 FL (9.6-12.0); Monocytes % 5.4 % (1.7-12.7); Neutrophils % 85.7 % (38.7-73.9); Platelet Count 238 T/CUMM (130-400); Red Blood Count 2.61 MC/CUMM (3.8-5.5); Red Cell Distribution Width 13.8 % (9.3-17.3); White Blood Count 9.6 T/CUMM (4-12)
[2021-02-02 05:02] LABS: Band Neutrophils 1 % (0-10); Lymphocytes 9 % (20-55); Platelet Estimate Adequate; Segmented Neutrophils 84 % (50-85); Total Cells Counted 100
[2021-02-02 05:03] LABS: Hypochromia 1+; Microcytosis 1+
[2021-02-02 05:05] LABS: Calcium 9.6 MG/DL (8.5-10.1); Osmolality,Calculated 289.5 MOS/KG (273-304); Potassium 4.1 MMOL/L (3.5-5.1)
[2021-02-02] MEDS: methylPREDNISolone SOD SUC 40 MG/1 ML VIAL IV SCH ×3 (05:05→20:20)
[2021-02-02] MEDS: FAMOTIDINE 20 MG/2 ML VIAL IV SCH ×2 (08:10→20:25)
[2021-02-02] MEDS: LEVOFLOXACIN INJ 750 MG/150 ML PREMIX IV SCH (08:11)
[2021-02-02] MEDS: PHENYTOIN 100 MG/2 ML VIAL IV SCH ×2 (08:11→20:35)
[2021-02-02] MEDS: DORNASE ALFA 2.5 MG/2.5 ML VIAL RESP TX SCH ×2 (08:23→19:34)
[2021-02-02] MEDS: ARFORMOTEROL 15 MCG/2 ML NEB RESP TX SCH ×2 (08:23→19:34)
[2021-02-02] MEDS: SULFAMETHOX/TRIMETHOPRIM 200-40 MG/5 ML -20 ML UDCUP PER TUBE SCH ×3 (10:43→20:35)
[2021-02-02] MEDS: EMTRICITAB RILPIVIR TENOFO ALA PO SCH (10:43)
[2021-02-02] MEDS ORDERED: MIDAZOLAM 2 MG/2 ML VIAL IV ONE (10:52)
[2021-02-02] MEDS: QUEtiapine 25 MG TABLET PO SCH ×2 (12:20→20:38)
[2021-02-02] MEDS: BUDESONIDE 0.5 MG/2 ML NEB RESP TX SCH ×2 (13:50→19:34)
[2021-02-02] MEDS: MIDAZOLAM 100 MG in SODIUM CHLORIDE 0.9% 80 ML IV PRN ×3 (16:20→23:36)
[2021-02-02] MEDS: fentaNYL INJ 1,250 MCG in SODIUM CHLORIDE 0.9% 225 ML IV PRN (18:45)
[2021-02-02] MEDS: ENOXAPARIN 40 MG/0.4 ML SYRINGE SUBCUT SCH (20:28)
[2021-02-02] MEDS: traZODone 50 MG TABLET PO SCH (20:35)
[2021-02-02] MEDS: ATORVASTATIN 10 MG TABLET PO SCH (20:38)
[2021-02-03] MEDS: ALBUTEROL/IPRATROPIUM 3 ML NEB RESP TX SCH ×4 (00:26→20:45)
[2021-02-03] MEDS: VALPROIC ACID INJ 1,000 MG in SODIUM CHLORIDE 0.9% 100 ML IV SCH ×2 (00:46→11:50)
[2021-02-03] MEDS: INSULIN LISPRO 100 UNIT/ML SUBCUT SCH ×4 (00:47→17:25)
[2021-02-03] MEDS: fentaNYL INJ 1,250 MCG in SODIUM CHLORIDE 0.9% 225 ML IV PRN (01:12)
[2021-02-03] MEDS: DEXMEDETOMIDINE 400 MCG in SODIUM CHLORIDE 0.9% 96 ML IV PRN ×6 (01:42→23:45)
[2021-02-03] MEDS: LORazepam 2 MG/1 ML VIAL IV PRN (02:33)
[2021-02-03 03:57] LABS: ABG Base Excess 5.3 MMOL/L (-2.5-2.5); ABG HCO3 31.3 MMOL/L (20-26); ABG Oxygen Saturation 92.4 % (95-100); ABG PCO2 54.2 MM HG (35-48); ABG PO2 70.1 MM HG (80-95); Allen Test Positive; Pt O2 Delivery Device Ventilator
[2021-02-03 05:07] LABS: Basophils % 0.1 % (0.0-0.8); Eosinophils % 0.1 % (0.00-10.9); Hematocrit 26.2 VOL% (35.7-47.0); Hemoglobin 8.2 GM/DL (12.0-16.0); Immature Granulocytes % 1.1 %; Lymphocytes # 0.7 10*3/uL (1.4-4.0); Lymphocytes % 7.3 % (21.3-54.2); Mean Corpuscular HGB Conc 31.3 GM/DL (32-36); Mean Corpuscular Volume 106.5 FL (87-102); Mean Platelet Volume 10.9 FL (9.6-12.0); Monocytes % 5.6 % (1.7-12.7); Neutrophils % 85.8 % (38.7-73.9); Platelet Count 267 T/CUMM (130-400); Red Blood Count 2.46 MC/CUMM (3.8-5.5); Red Cell Distribution Width 13.6 % (9.3-17.3); White Blood Count 9.1 T/CUMM (4-12)
[2021-02-03 05:25] LABS: Calcium 9.7 MG/DL (8.5-10.1); Osmolality,Calculated 299.4 MOS/KG (273-304); Potassium 4.8 MMOL/L (3.5-5.1)
[2021-02-03] MEDS: methylPREDNISolone SOD SUC 40 MG/1 ML VIAL IV SCH ×3 (05:30→22:33)
[2021-02-03] MEDS: MIDAZOLAM 100 MG in SODIUM CHLORIDE 0.9% 80 ML IV PRN ×2 (06:51→15:30)
[2021-02-03] MEDS: THEOPHYLLINE 5.33 MG/ML 30 ML/BOTTLE PO SCH ×2 (07:19→14:00)
[2021-02-03] MEDS: BUDESONIDE 0.5 MG/2 ML NEB RESP TX SCH ×2 (07:30→20:45)
[2021-02-03] MEDS: DORNASE ALFA 2.5 MG/2.5 ML VIAL RESP TX SCH ×2 (07:30→20:45)
[2021-02-03] MEDS: ARFORMOTEROL 15 MCG/2 ML NEB RESP TX SCH ×2 (07:30→20:45)
[2021-02-03] MEDS: FUROSEMIDE 40 MG/4 ML VIAL IV SCH (08:40)
[2021-02-03] MEDS: PHENYTOIN 100 MG/2 ML VIAL IV SCH ×2 (08:40→22:35)
[2021-02-03] MEDS: FAMOTIDINE 20 MG/2 ML VIAL IV SCH ×2 (08:45→22:32)
[2021-02-03] MEDS: QUEtiapine 25 MG TABLET PO SCH ×2 (08:50→22:15)
[2021-02-03] MEDS: EMTRICITAB RILPIVIR TENOFO ALA PO SCH (08:50)
[2021-02-03] MEDS: SULFAMETHOX/TRIMETHOPRIM 200-40 MG/5 ML -20 ML UDCUP PER TUBE SCH ×2 (08:50→22:13)
[2021-02-03] MEDS: ENOXAPARIN 40 MG/0.4 ML SYRINGE SUBCUT SCH (22:13)
[2021-02-03] MEDS: ATORVASTATIN 10 MG TABLET PO SCH (22:14)
[2021-02-03] MEDS: traZODone 50 MG TABLET PO SCH (22:14)
[2021-02-04] MEDS: MIDAZOLAM 100 MG in SODIUM CHLORIDE 0.9% 80 ML IV PRN ×3 (00:14→18:00)
[2021-02-04] MEDS: INSULIN LISPRO 100 UNIT/ML SUBCUT SCH ×4 (00:49→17:50)
[2021-02-04] MEDS: VALPROIC ACID INJ 1,000 MG in SODIUM CHLORIDE 0.9% 100 ML IV SCH ×2 (00:58→12:00)
[2021-02-04] MEDS: ALBUTEROL/IPRATROPIUM 3 ML NEB RESP TX SCH ×4 (01:08→20:04)
[2021-02-04] MEDS: DEXMEDETOMIDINE 400 MCG in SODIUM CHLORIDE 0.9% 96 ML IV PRN ×5 (03:41→21:04)
[2021-02-04 05:03] LABS: ABG Base Excess 6.8 MMOL/L (-2.5-2.5); ABG Oxygen Saturation 92.5 % (95-100); ABG PCO2 49.8 MM HG (35-48); ABG PH 7.426 (7.35-7.45); ABG PO2 68.8 MM HG (80-95); ABG TCO2 33.5 MMOL/L (23-27)
[2021-02-04] MEDS: THEOPHYLLINE 5.33 MG/ML 30 ML/BOTTLE PO SCH ×2 (05:08→13:30)
[2021-02-04] MEDS: methylPREDNISolone SOD SUC 40 MG/1 ML VIAL IV SCH ×2 (05:09→17:50)
[2021-02-04 05:52] LABS: Basophils % 0.1 % (0.0-0.8); Eosinophils % 0.4 % (0.00-10.9); Hematocrit 27.1 VOL% (35.7-47.0); Hemoglobin 8.6 GM/DL (12.0-16.0); Immature Granulocytes % 1.3 %; Lymphocytes # 1.1 10*3/uL (1.4-4.0); Lymphocytes % 13.6 % (21.3-54.2); Mean Corpuscular HGB Conc 31.7 GM/DL (32-36); Mean Corpuscular Volume 105.4 FL (87-102); Mean Platelet Volume 11.4 FL (9.6-12.0); Monocytes % 5.7 % (1.7-12.7); Neutrophils % 78.9 % (38.7-73.9); Platelet Count 347 T/CUMM (130-400); Red Blood Count 2.57 MC/CUMM (3.8-5.5); Red Cell Distribution Width 13.5 % (9.3-17.3); White Blood Count 7.7 T/CUMM (4-12)
[2021-02-04 06:10] LABS: Calcium 9.9 MG/DL (8.5-10.1); Osmolality,Calculated 293.1 MOS/KG (273-304); Potassium 5.1 MMOL/L (3.5-5.1)
[2021-02-04 06:28] LABS: Hypochromia 1+; Lymphocytes 10 % (20-55); Microcytosis 1+; Platelet Estimate Adequate; Segmented Neutrophils 86 % (50-85); Total Cells Counted 100
[2021-02-04] MEDS: DORNASE ALFA 2.5 MG/2.5 ML VIAL RESP TX SCH ×2 (07:30→20:04)
[2021-02-04] MEDS: ARFORMOTEROL 15 MCG/2 ML NEB RESP TX SCH ×2 (07:30→20:04)
[2021-02-04] MEDS: BUDESONIDE 0.5 MG/2 ML NEB RESP TX SCH ×2 (07:30→20:04)
[2021-02-04] MEDS: SULFAMETHOX/TRIMETHOPRIM 200-40 MG/5 ML -20 ML UDCUP PER TUBE SCH ×2 (08:00→21:24)
[2021-02-04] MEDS: FAMOTIDINE 20 MG/2 ML VIAL IV SCH ×2 (08:00→21:30)
[2021-02-04] MEDS: EMTRICITAB RILPIVIR TENOFO ALA PO SCH (08:00)
[2021-02-04] MEDS: MAGNESIUM SULF RIDER 2 GM/50 ML PREMIX IV PRN (08:00)
[2021-02-04] MEDS: QUEtiapine 25 MG TABLET PO SCH ×2 (08:00→21:24)
[2021-02-04] MEDS: FUROSEMIDE 40 MG/4 ML VIAL IV SCH ×3 (08:05→21:31)
[2021-02-04] MEDS: PHENYTOIN 100 MG/2 ML VIAL IV SCH ×2 (08:05→21:25)
[2021-02-04] MEDS: LEVOFLOXACIN 500 MG TABLET PER TUBE SCH (09:15)
[2021-02-04] MEDS: INSULIN GLARGINE 100 UNIT/ML SUBCUT SCH (09:45)
[2021-02-04] MEDS: ENOXAPARIN 40 MG/0.4 ML SYRINGE SUBCUT SCH (21:24)
[2021-02-04] MEDS: ATORVASTATIN 10 MG TABLET PO SCH (21:25)
[2021-02-04] MEDS: traZODone 50 MG TABLET PO SCH (21:25)
[2021-02-05] MEDS: VALPROIC ACID INJ 1,000 MG in SODIUM CHLORIDE 0.9% 100 ML IV SCH ×2 (00:45→11:50)
[2021-02-05] MEDS: INSULIN LISPRO 100 UNIT/ML SUBCUT SCH ×4 (00:48→18:03)
[2021-02-05] MEDS: ALBUTEROL/IPRATROPIUM 3 ML NEB RESP TX SCH ×4 (01:05→19:54)
[2021-02-05] MEDS: DEXMEDETOMIDINE 400 MCG in SODIUM CHLORIDE 0.9% 96 ML IV PRN ×6 (01:05→20:46)
[2021-02-05] MEDS: THEOPHYLLINE 5.33 MG/ML 30 ML/BOTTLE PO SCH ×2 (03:08→14:40)
[2021-02-05 04:04] LABS: ABG Base Excess 7.3 MMOL/L (-2.5-2.5); ABG PCO2 46.5 MM HG (35-48); ABG PH 7.456 (7.35-7.45); ABG PO2 70.2 MM HG (80-95); ABG TCO2 33.5 MMOL/L (23-27); Allen Test Positive; Pt O2 Delivery Device Ventilator
[2021-02-05 04:15] LABS: Basophils % 0.3 % (0.0-0.8); Eosinophils # 0.1 10*3/uL (0.0-0.87); Eosinophils % 0.9 % (0.00-10.9); Hematocrit 27.1 VOL% (35.7-47.0); Hemoglobin 8.6 GM/DL (12.0-16.0); Immature Granulocytes % 1.3 %; Lymphocytes # 1.7 10*3/uL (1.4-4.0); Lymphocytes % 22.2 % (21.3-54.2); Mean Corpuscular HGB Conc 31.7 GM/DL (32-36); Mean Corpuscular Volume 104.2 FL (87-102); Mean Platelet Volume 10.5 FL (9.6-12.0); Monocytes % 5.7 % (1.7-12.7); Neutrophils % 69.6 % (38.7-73.9); Platelet Count 355 T/CUMM (130-400); Red Cell Distribution Width 13.5 % (9.3-17.3); White Blood Count 7.8 T/CUMM (4-12)
[2021-02-05] MEDS: methylPREDNISolone SOD SUC 40 MG/1 ML VIAL IV SCH ×2 (04:28→16:20)
[2021-02-05 04:30] LABS: Osmolality,Calculated 292.8 MOS/KG (273-304); Potassium 4.4 MMOL/L (3.5-5.1)
[2021-02-05] MEDS: MIDAZOLAM 100 MG in SODIUM CHLORIDE 0.9% 80 ML IV PRN ×2 (05:14→16:45)
[2021-02-05] MEDS: ARFORMOTEROL 15 MCG/2 ML NEB RESP TX SCH ×2 (07:36→19:54)
[2021-02-05] MEDS: BUDESONIDE 0.5 MG/2 ML NEB RESP TX SCH ×2 (07:36→19:54)
[2021-02-05] MEDS: DORNASE ALFA 2.5 MG/2.5 ML VIAL RESP TX SCH ×2 (07:47→19:54)
[2021-02-05] MEDS: EMTRICITAB RILPIVIR TENOFO ALA PO SCH (08:35)
[2021-02-05] MEDS: PHENYTOIN 100 MG/2 ML VIAL IV SCH ×2 (08:35→20:05)
[2021-02-05] MEDS: QUEtiapine 25 MG TABLET PO SCH ×2 (08:35→20:06)
[2021-02-05] MEDS: SULFAMETHOX/TRIMETHOPRIM 200-40 MG/5 ML -20 ML UDCUP PER TUBE SCH ×2 (08:35→20:10)
[2021-02-05] MEDS: INSULIN GLARGINE 100 UNIT/ML SUBCUT SCH (08:35)
[2021-02-05] MEDS: FAMOTIDINE 20 MG/2 ML VIAL IV SCH ×2 (08:35→20:04)
[2021-02-05] MEDS: LEVOFLOXACIN 500 MG TABLET PER TUBE SCH (08:35)
[2021-02-05] MEDS: FUROSEMIDE 40 MG/4 ML VIAL IV SCH ×2 (08:40→20:04)
[2021-02-05] MEDS: traZODone 50 MG TABLET PO SCH (20:05)
[2021-02-05] MEDS: ATORVASTATIN 10 MG TABLET PO SCH (20:06)
[2021-02-05] MEDS: ENOXAPARIN 40 MG/0.4 ML SYRINGE SUBCUT SCH (20:06)
[2021-02-06] MEDS: VALPROIC ACID INJ 1,000 MG in SODIUM CHLORIDE 0.9% 100 ML IV SCH ×2 (00:11→11:47)
[2021-02-06] MEDS: DEXMEDETOMIDINE 400 MCG in SODIUM CHLORIDE 0.9% 96 ML IV PRN ×6 (00:44→23:46)
[2021-02-06] MEDS: INSULIN LISPRO 100 UNIT/ML SUBCUT SCH ×4 (00:57→17:46)
[2021-02-06] MEDS: ALBUTEROL/IPRATROPIUM 3 ML NEB RESP TX SCH ×4 (01:26→20:00)
[2021-02-06] MEDS: THEOPHYLLINE 5.33 MG/ML 30 ML/BOTTLE PO SCH ×2 (01:45→13:46)
[2021-02-06] MEDS: MIDAZOLAM 100 MG in SODIUM CHLORIDE 0.9% 80 ML IV PRN ×2 (04:21→22:39)
[2021-02-06 04:45] LABS: Basophils % 0.4 % (0.0-0.8); Eosinophils # 0.1 10*3/uL (0.0-0.87); Eosinophils % 1.3 % (0.00-10.9); Hematocrit 25.4 VOL% (35.7-47.0); Immature Granulocytes % 1.5 %; Immature Granulocytes Absolute 0.13 #; Lymphocytes # 2.1 10*3/uL (1.4-4.0); Lymphocytes % 24.4 % (21.3-54.2); Mean Corpuscular HGB Conc 31.5 GM/DL (32-36); Mean Corpuscular Volume 105.8 FL (87-102); Mean Platelet Volume 10.8 FL (9.6-12.0); Monocytes % 4.8 % (1.7-12.7); NRBC # 0.02 10*3/uL; Neutrophils % 67.6 % (38.7-73.9); Platelet Count 339 T/CUMM (130-400); Red Cell Distribution Width 13.5 % (9.3-17.3); White Blood Count 8.6 T/CUMM (4-12)
[2021-02-06] MEDS: methylPREDNISolone SOD SUC 40 MG/1 ML VIAL IV SCH ×2 (04:50→16:30)
[2021-02-06 05:07] LABS: Calcium 9.7 MG/DL (8.5-10.1)
[2021-02-06 05:07] LABS: ABG Base Excess 8.8 MMOL/L (-2.5-2.5); ABG HCO3 32.4 MMOL/L (20-26); ABG Oxygen Saturation 89.5 % (95-100); ABG PCO2 49.5 MM HG (35-48); ABG PH 7.446 (7.35-7.45); ABG PO2 65.3 MM HG (80-95); ABG TCO2 31.4 MMOL/L (23-27)
[2021-02-06] MEDS: ARFORMOTEROL 15 MCG/2 ML NEB RESP TX SCH ×2 (07:18→20:00)
[2021-02-06] MEDS: BUDESONIDE 0.5 MG/2 ML NEB RESP TX SCH ×2 (07:19→20:00)
[2021-02-06] MEDS: DORNASE ALFA 2.5 MG/2.5 ML VIAL RESP TX SCH ×2 (07:39→20:00)
[2021-02-06] MEDS: PHENYTOIN 100 MG/2 ML VIAL IV SCH ×2 (09:35→21:40)
[2021-02-06] MEDS: FAMOTIDINE 20 MG/2 ML VIAL IV SCH ×2 (09:36→21:43)
[2021-02-06] MEDS: LEVOFLOXACIN 500 MG TABLET PER TUBE SCH (09:36)
[2021-02-06] MEDS: INSULIN GLARGINE 100 UNIT/ML SUBCUT SCH (09:36)
[2021-02-06] MEDS: QUEtiapine 25 MG TABLET PO SCH ×2 (09:36→21:40)
[2021-02-06] MEDS: SULFAMETHOX/TRIMETHOPRIM 200-40 MG/5 ML -20 ML UDCUP PER TUBE SCH (09:46)
[2021-02-06] MEDS: LORazepam 2 MG/1 ML VIAL IV PRN ×3 (09:59→21:35)
[2021-02-06] MEDS ORDERED: LACTATED RINGERS 500 ML IV ONE (12:16)
[2021-02-06] MEDS: EMTRICITAB RILPIVIR TENOFO ALA PO SCH (17:36)
[2021-02-06] MEDS: ENOXAPARIN 40 MG/0.4 ML SYRINGE SUBCUT SCH (21:40)
[2021-02-06] MEDS: ATORVASTATIN 10 MG TABLET PO SCH (21:40)
[2021-02-06] MEDS: traZODone 50 MG TABLET PO SCH (21:40)
[2021-02-07] MEDS: ALBUTEROL/IPRATROPIUM 3 ML NEB RESP TX SCH ×4 (00:45→19:58)
[2021-02-07] MEDS: INSULIN LISPRO 100 UNIT/ML SUBCUT SCH ×4 (00:52→17:39)
[2021-02-07] MEDS: VALPROIC ACID INJ 1,000 MG in SODIUM CHLORIDE 0.9% 100 ML IV SCH ×2 (01:32→12:52)
[2021-02-07] MEDS: THEOPHYLLINE 5.33 MG/ML 30 ML/BOTTLE PO SCH ×2 (02:45→14:36)
[2021-02-07 04:17] LABS: ABG Base Excess 7.6 MMOL/L (-2.5-2.5); ABG HCO3 31.3 MMOL/L (20-26); ABG Oxygen Saturation 94.6 % (95-100); ABG PCO2 53.2 MM HG (35-48); ABG PH 7.407 (7.35-7.45); ABG PO2 87.5 MM HG (80-95); ABG TCO2 31.1 MMOL/L (23-27); Allen Test Positive; Pt O2 Delivery Device Ventilator
[2021-02-07 05:10] LABS: Basophils % 0.2 % (0.0-0.8); Eosinophils # 0.2 10*3/uL (0.0-0.87); Eosinophils % 2.4 % (0.00-10.9); Hematocrit 25.8 VOL% (35.7-47.0); Hemoglobin 8.1 GM/DL (12.0-16.0); Immature Granulocytes % 1.6 %; Immature Granulocytes Absolute 0.14 #; Lymphocytes # 1.5 10*3/uL (1.4-4.0); Lymphocytes % 16.4 % (21.3-54.2); Mean Corpuscular HGB Conc 31.4 GM/DL (32-36); Mean Corpuscular Volume 107.1 FL (87-102); Mean Platelet Volume 10.5 FL (9.6-12.0); Monocytes % 5.2 % (1.7-12.7); Neutrophils % 74.2 % (38.7-73.9); Platelet Count 342 T/CUMM (130-400); Red Blood Count 2.41 MC/CUMM (3.8-5.5); Red Cell Distribution Width 13.6 % (9.3-17.3); White Blood Count 8.8 T/CUMM (4-12)
[2021-02-07 05:30] LABS: Calcium 9.6 MG/DL (8.5-10.1); Osmolality,Calculated 296.4 MOS/KG (273-304); Potassium 3.6 MMOL/L (3.5-5.1)
[2021-02-07] MEDS: methylPREDNISolone SOD SUC 40 MG/1 ML VIAL IV SCH ×2 (05:41→17:58)
[2021-02-07] MEDS: DEXMEDETOMIDINE 400 MCG in SODIUM CHLORIDE 0.9% 96 ML IV PRN ×4 (07:00→23:21)
[2021-02-07] MEDS: ARFORMOTEROL 15 MCG/2 ML NEB RESP TX SCH ×2 (07:20→19:58)
[2021-02-07] MEDS: BUDESONIDE 0.5 MG/2 ML NEB RESP TX SCH ×2 (07:20→19:58)
[2021-02-07] MEDS: DORNASE ALFA 2.5 MG/2.5 ML VIAL RESP TX SCH ×2 (07:41→20:20)
[2021-02-07] MEDS: PHENYTOIN 100 MG/2 ML VIAL IV SCH ×2 (09:03→21:05)
[2021-02-07] MEDS: FAMOTIDINE 20 MG/2 ML VIAL IV SCH ×2 (09:04→21:07)
[2021-02-07] MEDS: QUEtiapine 25 MG TABLET PO SCH ×2 (09:04→21:10)
[2021-02-07] MEDS: LEVOFLOXACIN 500 MG TABLET PER TUBE SCH (09:04)
[2021-02-07] MEDS: EMTRICITAB RILPIVIR TENOFO ALA PO SCH ×2 (09:04→17:58)
[2021-02-07] MEDS: POTASSIUM BICARB EFFERVESCENT 20 MEQ TAB.EFF PER TUBE PRN (09:04)
[2021-02-07] MEDS: INSULIN GLARGINE 100 UNIT/ML SUBCUT SCH (09:04)
[2021-02-07] MEDS: traZODone 50 MG TABLET PO SCH (21:05)
[2021-02-07] MEDS: ATORVASTATIN 10 MG TABLET PO SCH (21:06)
[2021-02-07] MEDS: ENOXAPARIN 40 MG/0.4 ML SYRINGE SUBCUT SCH (21:06)
[2021-02-08] MEDS: VALPROIC ACID INJ 1,000 MG in SODIUM CHLORIDE 0.9% 100 ML IV SCH ×2 (00:01→12:20)
[2021-02-08] MEDS: ALBUTEROL/IPRATROPIUM 3 ML NEB RESP TX SCH ×4 (00:54→18:59)
[2021-02-08] MEDS: INSULIN LISPRO 100 UNIT/ML SUBCUT SCH ×4 (02:10→18:20)
[2021-02-08] MEDS: THEOPHYLLINE 5.33 MG/ML 30 ML/BOTTLE PO SCH ×2 (02:47→15:09)
[2021-02-08] MEDS: DEXMEDETOMIDINE 400 MCG in SODIUM CHLORIDE 0.9% 96 ML IV PRN ×3 (03:56→19:00)
[2021-02-08] MEDS: methylPREDNISolone SOD SUC 40 MG/1 ML VIAL IV SCH ×2 (05:26→18:20)
[2021-02-08] MEDS: ARFORMOTEROL 15 MCG/2 ML NEB RESP TX SCH ×2 (07:52→18:59)
[2021-02-08] MEDS: BUDESONIDE 0.5 MG/2 ML NEB RESP TX SCH ×2 (07:52→18:59)
[2021-02-08] MEDS: DORNASE ALFA 2.5 MG/2.5 ML VIAL RESP TX SCH ×2 (08:12→18:59)
[2021-02-08] MEDS: PHENYTOIN 100 MG/2 ML VIAL IV SCH ×2 (09:16→21:50)
[2021-02-08] MEDS: LEVOFLOXACIN 500 MG TABLET PER TUBE SCH (09:17)
[2021-02-08] MEDS: QUEtiapine 25 MG TABLET PO SCH ×2 (09:17→21:52)
[2021-02-08] MEDS: FAMOTIDINE 20 MG/2 ML VIAL IV SCH ×2 (09:17→21:52)
[2021-02-08] MEDS: EMTRICITAB RILPIVIR TENOFO ALA PO SCH (09:18)
[2021-02-08] MEDS: INSULIN GLARGINE 100 UNIT/ML SUBCUT SCH (09:19)
[2021-02-08 09:41] LABS: Basophils % 0.3 % (0.0-0.8); Eosinophils # 0.2 10*3/uL (0.0-0.87); Eosinophils % 2.9 % (0.00-10.9); Hematocrit 27.8 VOL% (35.7-47.0); Hemoglobin 8.6 GM/DL (12.0-16.0); Immature Granulocytes % 2.1 %; Immature Granulocytes Absolute 0.15 #; Lymphocytes # 1.6 10*3/uL (1.4-4.0); Lymphocytes % 21.7 % (21.3-54.2); Mean Corpuscular HGB Conc 30.9 GM/DL (32-36); Mean Corpuscular Volume 109.4 FL (87-102); Mean Platelet Volume 10.3 FL (9.6-12.0); Platelet Count 339 T/CUMM (130-400); Red Blood Count 2.54 MC/CUMM (3.8-5.5); Red Cell Distribution Width 13.8 % (9.3-17.3); White Blood Count 7.2 T/CUMM (4-12)
[2021-02-08 09:56] LABS: Albumin 1.9 G/DL (3.4-5.0); Bilirubin,Total 0.5 MG/DL (0.20-1.00); Calcium 9.7 MG/DL (8.5-10.1); Osmolality,Calculated 303.8 MOS/KG (273-304); Potassium 3.7 MMOL/L (3.5-5.1); Total Protein 7.9 G/DL (6.4-8.2)
[2021-02-08] MEDS ORDERED: LORazepam 2 MG/1 ML VIAL IV ONE (11:23)
[2021-02-08 11:40] LABS: ABG Base Excess 5.9 MMOL/L (-2.5-2.5); ABG HCO3 34.7 MMOL/L (20-26); ABG Oxygen Saturation 98.7 % (95-100); ABG PO2 184.7 MM HG (80-95); ABG TCO2 37.1 MMOL/L (23-27); Allen Test Positive; Pt O2 Delivery Device Ventilator
[2021-02-08 11:56] LABS: ABG PCO2 79.1 MM HG (35-48)
[2021-02-08] MEDS: traZODone 50 MG TABLET PO SCH (21:50)
[2021-02-08] MEDS: ENOXAPARIN 40 MG/0.4 ML SYRINGE SUBCUT SCH (21:51)
[2021-02-08] MEDS: ATORVASTATIN 10 MG TABLET PO SCH (21:51)
[2021-02-08] MEDS: MIDAZOLAM 100 MG in SODIUM CHLORIDE 0.9% 80 ML IV PRN (22:26)
[2021-02-08] MEDS: LORazepam 2 MG/1 ML VIAL IV PRN (23:07)
[2021-02-09] MEDS: VALPROIC ACID INJ 1,000 MG in SODIUM CHLORIDE 0.9% 100 ML IV SCH ×2 (00:03→11:56)
[2021-02-09] MEDS: INSULIN LISPRO 100 UNIT/ML SUBCUT SCH ×4 (01:10→19:03)
[2021-02-09] MEDS: DEXMEDETOMIDINE 400 MCG in SODIUM CHLORIDE 0.9% 96 ML IV PRN ×4 (01:11→23:00)
[2021-02-09] MEDS: THEOPHYLLINE 5.33 MG/ML 30 ML/BOTTLE PO SCH ×2 (01:40→19:02)
[2021-02-09] MEDS: ALBUTEROL/IPRATROPIUM 3 ML NEB RESP TX SCH ×4 (01:43→19:45)
[2021-02-09 03:40] LABS: ABG Base Excess 6.2 MMOL/L (-2.5-2.5); ABG HCO3 30.1 MMOL/L (20-26); ABG Oxygen Saturation 98.8 % (95-100); ABG PCO2 56.1 MM HG (35-48); ABG PH 7.373 (7.35-7.45); ABG TCO2 30.4 MMOL/L (23-27)
[2021-02-09 04:31] LABS: Basophils % 0.3 % (0.0-0.8); Eosinophils # 0.2 10*3/uL (0.0-0.87); Eosinophils % 3.3 % (0.00-10.9); Hemoglobin 9.6 GM/DL (12.0-16.0); Immature Granulocytes % 1.7 %; Lymphocytes # 1.5 10*3/uL (1.4-4.0); Lymphocytes % 24.8 % (21.3-54.2); Mean Corpuscular Volume 111.5 FL (87-102); Mean Platelet Volume 10.7 FL (9.6-12.0); Monocytes % 5.6 % (1.7-12.7); Neutrophils % 64.3 % (38.7-73.9); Platelet Count 249 T/CUMM (130-400); Red Blood Count 2.87 MC/CUMM (3.8-5.5); Red Cell Distribution Width 13.6 % (9.3-17.3); White Blood Count 6.1 T/CUMM (4-12)
[2021-02-09 05:10] LABS: Band Neutrophils 1 % (0-10); Eosinophils 3 % (0-10); Lymphocytes 23 % (20-55); Platelet Estimate Adequate; Segmented Neutrophils 67 % (50-85); Total Cells Counted 100
[2021-02-09 05:11] LABS: Hypochromia 1+; Microcytosis 1+
[2021-02-09] MEDS: methylPREDNISolone SOD SUC 40 MG/1 ML VIAL IV SCH ×2 (05:40→17:15)
[2021-02-09 07:24] LABS: Bilirubin,Total 0.4 MG/DL (0.20-1.00); Calcium 9.7 MG/DL (8.5-10.1); Osmolality,Calculated 301.7 MOS/KG (273-304); Potassium 3.5 MMOL/L (3.5-5.1); Total Protein 7.6 G/DL (6.4-8.2)
[2021-02-09] MEDS: ARFORMOTEROL 15 MCG/2 ML NEB RESP TX SCH ×2 (07:53→19:45)
[2021-02-09] MEDS: BUDESONIDE 0.5 MG/2 ML NEB RESP TX SCH ×2 (07:53→19:40)
[2021-02-09] MEDS: DORNASE ALFA 2.5 MG/2.5 ML VIAL RESP TX SCH ×2 (08:23→20:05)
[2021-02-09] MEDS: LEVOFLOXACIN 500 MG TABLET PER TUBE SCH (09:40)
[2021-02-09] MEDS: QUEtiapine 25 MG TABLET PO SCH (09:40)
[2021-02-09] MEDS: FAMOTIDINE 20 MG/2 ML VIAL IV SCH ×2 (09:41→21:35)
[2021-02-09] MEDS: PHENYTOIN 100 MG/2 ML VIAL IV SCH ×2 (09:41→21:40)
[2021-02-09] MEDS: INSULIN GLARGINE 100 UNIT/ML SUBCUT SCH (09:41)
[2021-02-09] MEDS: EMTRICITAB RILPIVIR TENOFO ALA PO SCH (09:42)
[2021-02-09] MEDS: MIDAZOLAM 100 MG in SODIUM CHLORIDE 0.9% 80 ML IV PRN ×2 (12:10→22:40)
[2021-02-09] MEDS: ENOXAPARIN 40 MG/0.4 ML SYRINGE SUBCUT SCH (21:30)
[2021-02-09] MEDS: ATORVASTATIN 10 MG TABLET PO SCH (21:39)
[2021-02-10] MEDS: VALPROIC ACID INJ 1,000 MG in SODIUM CHLORIDE 0.9% 100 ML IV SCH ×3 (00:02→23:40)
[2021-02-10] MEDS: ALBUTEROL/IPRATROPIUM 3 ML NEB RESP TX SCH ×4 (01:00→19:31)
[2021-02-10] MEDS: traZODone 50 MG TABLET PO SCH ×2 (02:28→22:25)
[2021-02-10] MEDS: QUEtiapine 25 MG TABLET PO SCH ×3 (02:37→22:25)
[2021-02-10] MEDS: INSULIN LISPRO 100 UNIT/ML SUBCUT SCH ×5 (02:38→23:28)
[2021-02-10] MEDS: THEOPHYLLINE 5.33 MG/ML 30 ML/BOTTLE PO SCH ×2 (03:03→15:30)
[2021-02-10 04:48] LABS: ABG Base Excess 7.3 MMOL/L (-2.5-2.5); ABG HCO3 31.1 MMOL/L (20-26); ABG Oxygen Saturation 97.6 % (95-100); ABG PH 7.374 (7.35-7.45); ABG TCO2 31.6 MMOL/L (23-27)
[2021-02-10 04:50] LABS: Basophils % 0.1 % (0.0-0.8); Eosinophils # 0.3 10*3/uL (0.0-0.87); Eosinophils % 3.7 % (0.00-10.9); Hematocrit 27.1 VOL% (35.7-47.0); Hemoglobin 8.1 GM/DL (12.0-16.0); Immature Granulocytes % 1.3 %; Immature Granulocytes Absolute 0.09 #; Lymphocytes # 1.3 10*3/uL (1.4-4.0); Lymphocytes % 17.7 % (21.3-54.2); Mean Corpuscular HGB Conc 29.9 GM/DL (32-36); Mean Corpuscular Volume 111.5 FL (87-102); Mean Platelet Volume 10.5 FL (9.6-12.0); Monocytes % 4.5 % (1.7-12.7); Neutrophils % 72.7 % (38.7-73.9); Platelet Count 259 T/CUMM (130-400); Red Blood Count 2.43 MC/CUMM (3.8-5.5); Red Cell Distribution Width 13.5 % (9.3-17.3); White Blood Count 7.1 T/CUMM (4-12)
[2021-02-10] MEDS: methylPREDNISolone SOD SUC 40 MG/1 ML VIAL IV SCH ×2 (05:00→18:35)
[2021-02-10 05:29] LABS: Albumin 1.8 G/DL (3.4-5.0); Bilirubin,Total 1.1 MG/DL (0.20-1.00); Calcium 9.7 MG/DL (8.5-10.1); Osmolality,Calculated 301.4 MOS/KG (273-304); Potassium 4.1 MMOL/L (3.5-5.1); Total Protein 7.3 G/DL (6.4-8.2)
[2021-02-10] MEDS: ARFORMOTEROL 15 MCG/2 ML NEB RESP TX SCH ×2 (08:07→19:31)
[2021-02-10] MEDS: DORNASE ALFA 2.5 MG/2.5 ML VIAL RESP TX SCH ×2 (08:07→19:31)
[2021-02-10] MEDS: BUDESONIDE 0.5 MG/2 ML NEB RESP TX SCH ×2 (08:07→19:31)
[2021-02-10] MEDS: DEXMEDETOMIDINE 400 MCG in SODIUM CHLORIDE 0.9% 96 ML IV PRN ×3 (08:42→23:39)
[2021-02-10] MEDS ORDERED: FUROSEMIDE 40 MG/4 ML VIAL IV ONE (09:30)
[2021-02-10] MEDS: LEVOFLOXACIN 500 MG TABLET PER TUBE SCH (10:00)
[2021-02-10] MEDS: PHENYTOIN 100 MG/2 ML VIAL IV SCH ×2 (10:00→22:30)
[2021-02-10] MEDS: MIDAZOLAM 100 MG in SODIUM CHLORIDE 0.9% 80 ML IV PRN (11:30)
[2021-02-10] MEDS: INSULIN GLARGINE 100 UNIT/ML SUBCUT SCH (12:29)
[2021-02-10] MEDS: FAMOTIDINE 20 MG/2 ML VIAL IV SCH ×2 (12:30→22:28)
[2021-02-10] MEDS: EMTRICITAB RILPIVIR TENOFO ALA PO SCH (15:52)
[2021-02-10] MEDS: ATORVASTATIN 10 MG TABLET PO SCH (22:25)
[2021-02-10] MEDS: ENOXAPARIN 40 MG/0.4 ML SYRINGE SUBCUT SCH (23:27)
[2021-02-11] MEDS: ALBUTEROL/IPRATROPIUM 3 ML NEB RESP TX SCH ×4 (00:29→19:19)
[2021-02-11] MEDS: THEOPHYLLINE 5.33 MG/ML 30 ML/BOTTLE PO SCH ×2 (02:00→15:53)
[2021-02-11 05:13] LABS: ABG Base Excess 8.8 MMOL/L (-2.5-2.5); ABG HCO3 32.6 MMOL/L (20-26); ABG Oxygen Saturation 95.3 % (95-100); ABG PO2 83.2 MM HG (80-95); ABG TCO2 31.9 MMOL/L (23-27); Allen Test Positive; Pt O2 Delivery Device Ventilator
[2021-02-11] MEDS: DEXMEDETOMIDINE 400 MCG in SODIUM CHLORIDE 0.9% 96 ML IV PRN ×2 (05:17→10:10)
[2021-02-11] MEDS: MIDAZOLAM 100 MG in SODIUM CHLORIDE 0.9% 80 ML IV PRN (05:52)
[2021-02-11 05:54] LABS: Albumin 1.9 G/DL (3.4-5.0); Bilirubin,Total 0.4 MG/DL (0.20-1.00); Calcium 9.9 MG/DL (8.5-10.1); Osmolality,Calculated 298.8 MOS/KG (273-304); Potassium 3.9 MMOL/L (3.5-5.1); Total Protein 7.5 G/DL (6.4-8.2)
[2021-02-11 06:03] LABS: Basophils % 0.2 % (0.0-0.8); Eosinophils # 0.2 10*3/uL (0.0-0.87); Eosinophils % 2.7 % (0.00-10.9); Hematocrit 27.3 VOL% (35.7-47.0); Hemoglobin 8.5 GM/DL (12.0-16.0); Immature Granulocytes % 1.1 %; Lymphocytes # 1.8 10*3/uL (1.4-4.0); Mean Corpuscular HGB Conc 31.1 GM/DL (32-36); Mean Corpuscular Volume 109.6 FL (87-102); Mean Platelet Volume 11.4 FL (9.6-12.0); Monocytes % 4.3 % (1.7-12.7); Neutrophils % 71.7 % (38.7-73.9); Platelet Count 234 T/CUMM (130-400); Red Blood Count 2.49 MC/CUMM (3.8-5.5); Red Cell Distribution Width 13.6 % (9.3-17.3); White Blood Count 8.8 T/CUMM (4-12)
[2021-02-11] MEDS: methylPREDNISolone SOD SUC 40 MG/1 ML VIAL IV SCH ×2 (07:03→18:00)
[2021-02-11] MEDS: INSULIN LISPRO 100 UNIT/ML SUBCUT SCH ×3 (07:06→18:45)
[2021-02-11] MEDS: ARFORMOTEROL 15 MCG/2 ML NEB RESP TX SCH ×2 (07:30→19:19)
[2021-02-11] MEDS: BUDESONIDE 0.5 MG/2 ML NEB RESP TX SCH ×2 (07:30→19:19)
[2021-02-11] MEDS: DORNASE ALFA 2.5 MG/2.5 ML VIAL RESP TX SCH ×2 (07:43→19:20)
[2021-02-11 09:20] LABS: Eosinophils 4 % (0-10); Lymphocytes 19 % (20-55); Segmented Neutrophils 69 % (50-85); Total Cells Counted 100
[2021-02-11 09:21] LABS: Macrocytosis 2+; Polychromasia Slight
[2021-02-11 09:22] LABS: Platelet Estimate Normal
[2021-02-11] MEDS: EMTRICITAB RILPIVIR TENOFO ALA PO SCH (10:30)
[2021-02-11] MEDS ORDERED: FUROSEMIDE 40 MG/4 ML VIAL IV ONE (10:50)
[2021-02-11] MEDS: QUEtiapine 25 MG TABLET PO SCH ×2 (10:56→22:30)
[2021-02-11] MEDS: INSULIN GLARGINE 100 UNIT/ML SUBCUT SCH (10:56)
[2021-02-11] MEDS: LEVOFLOXACIN 500 MG TABLET PER TUBE SCH (10:56)
[2021-02-11] MEDS: PHENYTOIN 100 MG/2 ML VIAL IV SCH ×2 (10:56→22:28)
[2021-02-11] MEDS: FAMOTIDINE 20 MG/2 ML VIAL IV SCH ×2 (11:26→22:27)
[2021-02-11] MEDS: VALPROIC ACID INJ 1,000 MG in SODIUM CHLORIDE 0.9% 100 ML IV SCH ×2 (13:40→23:33)
[2021-02-11] MEDS: LORazepam 2 MG/1 ML VIAL IV PRN ×2 (15:53→18:00)
[2021-02-11] MEDS: ENOXAPARIN 40 MG/0.4 ML SYRINGE SUBCUT SCH (22:28)
[2021-02-11] MEDS: ATORVASTATIN 10 MG TABLET PO SCH (22:30)
[2021-02-11] MEDS: traZODone 50 MG TABLET PO SCH (22:30)
[2021-02-12] MEDS: DEXMEDETOMIDINE 400 MCG in SODIUM CHLORIDE 0.9% 96 ML IV PRN ×4 (00:50→23:10)
[2021-02-12] MEDS: MIDAZOLAM 100 MG in SODIUM CHLORIDE 0.9% 80 ML IV PRN (00:50)
[2021-02-12] MEDS: INSULIN LISPRO 100 UNIT/ML SUBCUT SCH ×5 (00:53→23:30)
[2021-02-12] MEDS: ALBUTEROL/IPRATROPIUM 3 ML NEB RESP TX SCH ×4 (00:59→20:42)
[2021-02-12] MEDS: THEOPHYLLINE 5.33 MG/ML 30 ML/BOTTLE PO SCH ×2 (02:25→15:47)
[2021-02-12 03:57] LABS: ABG HCO3 33.7 MMOL/L (20-26); ABG Oxygen Saturation 97.1 % (95-100); ABG PCO2 49.5 MM HG (35-48); ABG PO2 93.4 MM HG (80-95); ABG TCO2 32.7 MMOL/L (23-27)
[2021-02-12 04:41] LABS: Basophils % 0.1 % (0.0-0.8); Eosinophils # 0.2 10*3/uL (0.0-0.87); Eosinophils % 1.9 % (0.00-10.9); Hematocrit 26.9 VOL% (35.7-47.0); Hemoglobin 8.2 GM/DL (12.0-16.0); Immature Granulocytes Absolute 0.08 #; Lymphocytes # 1.4 10*3/uL (1.4-4.0); Lymphocytes % 17.2 % (21.3-54.2); Mean Corpuscular HGB Conc 30.5 GM/DL (32-36); Mean Corpuscular Volume 108.5 FL (87-102); Mean Platelet Volume 10.9 FL (9.6-12.0); Monocytes % 4.5 % (1.7-12.7); Neutrophils % 75.3 % (38.7-73.9); Platelet Count 247 T/CUMM (130-400); Red Blood Count 2.48 MC/CUMM (3.8-5.5); Red Cell Distribution Width 13.6 % (9.3-17.3)
[2021-02-12 04:56] LABS: Bilirubin,Total 0.4 MG/DL (0.20-1.00); Calcium 9.5 MG/DL (8.5-10.1); Osmolality,Calculated 292.1 MOS/KG (273-304); Potassium 3.9 MMOL/L (3.5-5.1); Total Protein 7.6 G/DL (6.4-8.2)
[2021-02-12] MEDS: methylPREDNISolone SOD SUC 40 MG/1 ML VIAL IV SCH ×2 (05:47→18:20)
[2021-02-12 07:13] LABS: Eosinophils 2 % (0-10); Lymphocytes 17 % (20-55); Platelet Estimate Normal; Segmented Neutrophils 79 % (50-85); Total Cells Counted 100
[2021-02-12 07:16] LABS: Macrocytosis 1+; Polychromasia Slight
[2021-02-12] MEDS: ARFORMOTEROL 15 MCG/2 ML NEB RESP TX SCH ×2 (07:51→20:42)
[2021-02-12] MEDS: DORNASE ALFA 2.5 MG/2.5 ML VIAL RESP TX SCH ×2 (07:51→20:42)
[2021-02-12] MEDS: BUDESONIDE 0.5 MG/2 ML NEB RESP TX SCH ×2 (07:51→20:42)
[2021-02-12] MEDS: FAMOTIDINE 20 MG/2 ML VIAL IV SCH ×2 (08:58→21:22)
[2021-02-12] MEDS: PHENYTOIN 100 MG/2 ML VIAL IV SCH ×2 (08:58→21:21)
[2021-02-12] MEDS: QUEtiapine 25 MG TABLET PO SCH ×2 (08:58→21:24)
[2021-02-12] MEDS: EMTRICITAB RILPIVIR TENOFO ALA PO SCH (08:59)
[2021-02-12] MEDS: LEVOFLOXACIN 500 MG TABLET PER TUBE SCH (08:59)
[2021-02-12] MEDS: INSULIN GLARGINE 100 UNIT/ML SUBCUT SCH (09:21)
[2021-02-12] MEDS: FUROSEMIDE 40 MG/4 ML VIAL IV SCH (12:35)
[2021-02-12] MEDS: VALPROIC ACID INJ 1,000 MG in SODIUM CHLORIDE 0.9% 100 ML IV SCH ×2 (12:46→23:11)
[2021-02-12 13:47] LABS: Pneumocystis jiroveci Result Negative (Negative); Pneumocystis jiroveci Source SPUTUM
[2021-02-12] MEDS: LORazepam 2 MG/1 ML VIAL IV PRN (13:50)
[2021-02-12] MEDS: traZODone 50 MG TABLET PO SCH (21:23)
[2021-02-12] MEDS: ATORVASTATIN 10 MG TABLET PO SCH (21:24)
[2021-02-12] MEDS: ENOXAPARIN 40 MG/0.4 ML SYRINGE SUBCUT SCH (21:25)
[2021-02-13] MEDS: ALBUTEROL/IPRATROPIUM 3 ML NEB RESP TX SCH ×4 (01:36→19:09)
[2021-02-13] MEDS: THEOPHYLLINE 5.33 MG/ML 30 ML/BOTTLE PO SCH ×2 (03:23→15:13)
[2021-02-13] MEDS: methylPREDNISolone SOD SUC 40 MG/1 ML VIAL IV SCH ×2 (04:23→17:38)
[2021-02-13 04:43] LABS: Basophils % 0.2 % (0.0-0.8); Eosinophils # 0.2 10*3/uL (0.0-0.87); Eosinophils % 2.5 % (0.00-10.9); Hematocrit 26.6 VOL% (35.7-47.0); Hemoglobin 8.2 GM/DL (12.0-16.0); Immature Granulocytes % 0.7 %; Immature Granulocytes Absolute 0.06 #; Lymphocytes # 1.7 10*3/uL (1.4-4.0); Lymphocytes % 19.5 % (21.3-54.2); Mean Corpuscular HGB Conc 30.8 GM/DL (32-36); Mean Corpuscular Volume 108.6 FL (87-102); Mean Platelet Volume 10.3 FL (9.6-12.0); Monocytes % 4.9 % (1.7-12.7); NRBC # 0.02 10*3/uL; Neutrophils % 72.2 % (38.7-73.9); Platelet Count 242 T/CUMM (130-400); Red Blood Count 2.45 MC/CUMM (3.8-5.5); Red Cell Distribution Width 13.8 % (9.3-17.3); White Blood Count 8.6 T/CUMM (4-12)
[2021-02-13 05:01] LABS: Bilirubin,Total 0.4 MG/DL (0.20-1.00); Calcium 9.7 MG/DL (8.5-10.1); Osmolality,Calculated 290.1 MOS/KG (273-304); Potassium 3.6 MMOL/L (3.5-5.1); Total Protein 7.7 G/DL (6.4-8.2)
[2021-02-13] MEDS: DEXMEDETOMIDINE 400 MCG in SODIUM CHLORIDE 0.9% 96 ML IV PRN (06:19)
[2021-02-13] MEDS: INSULIN LISPRO 100 UNIT/ML SUBCUT SCH ×3 (06:23→17:41)
[2021-02-13] MEDS: DORNASE ALFA 2.5 MG/2.5 ML VIAL RESP TX SCH ×2 (07:01→19:09)
[2021-02-13] MEDS: BUDESONIDE 0.5 MG/2 ML NEB RESP TX SCH ×2 (07:01→19:09)
[2021-02-13] MEDS: ARFORMOTEROL 15 MCG/2 ML NEB RESP TX SCH ×2 (07:01→19:09)
[2021-02-13] MEDS: FAMOTIDINE 20 MG/2 ML VIAL IV SCH ×2 (08:14→22:10)
[2021-02-13] MEDS: LEVOFLOXACIN 500 MG TABLET PER TUBE SCH (08:14)
[2021-02-13] MEDS: FUROSEMIDE 40 MG/4 ML VIAL IV SCH (08:14)
[2021-02-13] MEDS: PHENYTOIN 100 MG/2 ML VIAL IV SCH ×2 (08:14→22:09)
[2021-02-13] MEDS: EMTRICITAB RILPIVIR TENOFO ALA PO SCH (08:14)
[2021-02-13] MEDS: INSULIN GLARGINE 100 UNIT/ML SUBCUT SCH (08:28)
[2021-02-13] MEDS: VALPROIC ACID INJ 1,000 MG in SODIUM CHLORIDE 0.9% 100 ML IV SCH (12:19)
[2021-02-13] MEDS: ALBUTEROL/IPRATROPIUM 3 ML NEB RESP TX PRN (15:53)
[2021-02-13] MEDS ORDERED: DIGOXIN 0.5 MG/2 ML AMP IV ONE (16:15)
[2021-02-13] MEDS ORDERED: DIGOXIN 0.5 MG/2 ML AMP ONE (16:17)
[2021-02-13] MEDS: LORazepam 2 MG/1 ML VIAL IV PRN (17:06)
[2021-02-13 19:30] LABS: ABG Base Excess 10.7 MMOL/L (-2.5-2.5); ABG HCO3 34.3 MMOL/L (20-26); ABG Oxygen Saturation 92.1 % (95-100); ABG PO2 70.7 MM HG (80-95); ABG TCO2 33.3 MMOL/L (23-27)
[2021-02-13] MEDS ORDERED: DILTIAZEM 50 MG/10 ML VIAL IV ONE (20:09)
[2021-02-13] MEDS ORDERED: QUEtiapine 25 MG TABLET PO SCH (21:00)
[2021-02-13] MEDS: ENOXAPARIN 40 MG/0.4 ML SYRINGE SUBCUT SCH (22:06)
[2021-02-13] MEDS: traZODone 50 MG TABLET PO SCH (22:13)
[2021-02-13] MEDS: ATORVASTATIN 10 MG TABLET PO SCH (22:13)
[2021-02-13] MEDS ORDERED: MORPHINE 2 MG/1 ML SYRINGE IV ONE (22:54)
[2021-02-14] MEDS: LORazepam 2 MG/1 ML VIAL IV PRN (00:04)
[2021-02-14] MEDS: INSULIN LISPRO 100 UNIT/ML SUBCUT SCH ×4 (00:10→18:26)
[2021-02-14] MEDS: VALPROIC ACID INJ 1,000 MG in SODIUM CHLORIDE 0.9% 100 ML IV SCH ×3 (00:14→23:34)
[2021-02-14] MEDS: ALBUTEROL/IPRATROPIUM 3 ML NEB RESP TX SCH ×4 (01:16→19:34)
[2021-02-14] MEDS: THEOPHYLLINE 5.33 MG/ML 30 ML/BOTTLE PO SCH ×2 (02:36→15:31)
[2021-02-14 05:00] LABS: ABG Base Excess 10.6 MMOL/L (-2.5-2.5); ABG HCO3 34.1 MMOL/L (20-26); ABG PCO2 56.3 MM HG (35-48); ABG PH 7.423 (7.35-7.45); ABG TCO2 33.8 MMOL/L (23-27)
[2021-02-14 05:01] LABS: Basophils % 0.1 % (0.0-0.8); Eosinophils # 0.1 10*3/uL (0.0-0.87); Eosinophils % 1.3 % (0.00-10.9); Hematocrit 29.6 VOL% (35.7-47.0); Hemoglobin 9.3 GM/DL (12.0-16.0); Immature Granulocytes % 0.9 %; Immature Granulocytes Absolute 0.07 #; Lymphocytes # 1.6 10*3/uL (1.4-4.0); Lymphocytes % 20.8 % (21.3-54.2); Mean Corpuscular HGB Conc 31.4 GM/DL (32-36); Mean Platelet Volume 10.8 FL (9.6-12.0); Monocytes % 4.9 % (1.7-12.7); Platelet Count 247 T/CUMM (130-400); Red Blood Count 2.74 MC/CUMM (3.8-5.5); Red Cell Distribution Width 13.8 % (9.3-17.3); White Blood Count 7.7 T/CUMM (4-12)
[2021-02-14 05:31] LABS: Albumin 2.3 G/DL (3.4-5.0); Calcium 9.1 MG/DL (8.5-10.1); Osmolality,Calculated 285.3 MOS/KG (273-304); Potassium 3.1 MMOL/L (3.5-5.1); Total Protein 8.2 G/DL (6.4-8.2)
[2021-02-14] MEDS: methylPREDNISolone SOD SUC 40 MG/1 ML VIAL IV SCH ×2 (05:59→17:17)
[2021-02-14] MEDS: DORNASE ALFA 2.5 MG/2.5 ML VIAL RESP TX SCH ×2 (07:35→19:34)
[2021-02-14] MEDS: ARFORMOTEROL 15 MCG/2 ML NEB RESP TX SCH ×2 (07:35→19:34)
[2021-02-14] MEDS: BUDESONIDE 0.5 MG/2 ML NEB RESP TX SCH ×2 (07:35→19:34)
[2021-02-14] MEDS: INSULIN GLARGINE 100 UNIT/ML SUBCUT SCH (08:21)
[2021-02-14] MEDS: FAMOTIDINE 20 MG/2 ML VIAL IV SCH ×2 (08:21→20:05)
[2021-02-14] MEDS: PHENYTOIN 100 MG/2 ML VIAL IV SCH ×2 (08:22→20:06)
[2021-02-14] MEDS: FUROSEMIDE 40 MG/4 ML VIAL IV SCH (08:22)
[2021-02-14] MEDS: LEVOFLOXACIN 500 MG TABLET PER TUBE SCH (08:22)
[2021-02-14] MEDS: EMTRICITAB RILPIVIR TENOFO ALA PO SCH (08:22)
[2021-02-14] MEDS: POTASSIUM BICARB EFFERVESCENT 20 MEQ TAB.EFF PEG SCH ×2 (08:23→12:12)
[2021-02-14] MEDS: SULFAMETHOX/TRIMETHOPRIM 800-160 MG TABLET PO SCH ×2 (10:17→20:09)
[2021-02-14] MEDS: ENOXAPARIN 40 MG/0.4 ML SYRINGE SUBCUT SCH (20:08)
[2021-02-14] MEDS: traZODone 50 MG TABLET PO SCH (20:09)
[2021-02-14] MEDS: ATORVASTATIN 10 MG TABLET PO SCH (20:09)
[2021-02-15] MEDS: INSULIN LISPRO 100 UNIT/ML SUBCUT SCH ×4 (00:16→17:58)
[2021-02-15] MEDS: ALBUTEROL/IPRATROPIUM 3 ML NEB RESP TX SCH ×4 (01:59→19:45)
[2021-02-15] MEDS: THEOPHYLLINE 5.33 MG/ML 30 ML/BOTTLE PO SCH (02:24)
[2021-02-15 04:00] LABS: Basophils % 0.1 % (0.0-0.8); Eosinophils # 0.1 10*3/uL (0.0-0.87); Eosinophils % 1.4 % (0.00-10.9); Hematocrit 28.1 VOL% (35.7-47.0); Immature Granulocytes Absolute 0.07 #; Lymphocytes # 1.3 10*3/uL (1.4-4.0); Lymphocytes % 19.4 % (21.3-54.2); Mean Platelet Volume 10.5 FL (9.6-12.0); Monocytes % 6.8 % (1.7-12.7); NRBC # 0.02 10*3/uL; Neutrophils % 71.3 % (38.7-73.9); Platelet Count 226 T/CUMM (130-400); Red Blood Count 2.65 MC/CUMM (3.8-5.5); Red Cell Distribution Width 13.8 % (9.3-17.3); White Blood Count 6.9 T/CUMM (4-12)
[2021-02-15 04:32] LABS: Albumin 2.2 G/DL (3.4-5.0); Bilirubin,Total 0.4 MG/DL (0.20-1.00); Calcium 9.2 MG/DL (8.5-10.1); Osmolality,Calculated 275.8 MOS/KG (273-304); Potassium 2.8 MMOL/L (3.5-5.1)
[2021-02-15] MEDS: methylPREDNISolone SOD SUC 40 MG/1 ML VIAL IV SCH ×2 (04:59→17:07)
[2021-02-15] MEDS: POTASSIUM BICARB EFFERVESCENT 20 MEQ TAB.EFF PER TUBE PRN ×4 (04:59→22:00)
[2021-02-15 05:20] LABS: ABG Base Excess 9.1 MMOL/L (-2.5-2.5); ABG HCO3 32.8 MMOL/L (20-26); ABG PH 7.309 (7.35-7.45); ABG PO2 87.9 MM HG (80-95); ABG TCO2 35.2 MMOL/L (23-27)
[2021-02-15 05:21] LABS: ABG PCO2 75.8 MM HG (35-48)
[2021-02-15] MEDS: BUDESONIDE 0.5 MG/2 ML NEB RESP TX SCH ×2 (07:15→19:45)
[2021-02-15] MEDS: ARFORMOTEROL 15 MCG/2 ML NEB RESP TX SCH ×2 (07:15→20:00)
[2021-02-15] MEDS: DORNASE ALFA 2.5 MG/2.5 ML VIAL RESP TX SCH (07:25)
[2021-02-15] MEDS: FAMOTIDINE 20 MG/2 ML VIAL IV SCH ×2 (08:04→21:54)
[2021-02-15] MEDS: FUROSEMIDE 40 MG/4 ML VIAL IV SCH (08:05)
[2021-02-15] MEDS: PHENYTOIN 100 MG/2 ML VIAL IV SCH ×2 (08:07→21:59)
[2021-02-15] MEDS: INSULIN GLARGINE 100 UNIT/ML SUBCUT SCH (08:08)
[2021-02-15] MEDS: EMTRICITAB RILPIVIR TENOFO ALA PO SCH (08:10)
[2021-02-15] MEDS: SULFAMETHOX/TRIMETHOPRIM 800-160 MG TABLET PO SCH ×2 (08:10→22:07)
[2021-02-15 08:38] LABS: ABG Base Excess 9.1 MMOL/L (-2.5-2.5); ABG HCO3 32.8 MMOL/L (20-26); ABG Oxygen Saturation 93.9 % (95-100); ABG PH 7.238 (7.35-7.45); ABG PO2 92.5 MM HG (80-95); ABG TCO2 37.3 MMOL/L (23-27)
[2021-02-15 09:16] LABS: ABG PCO2 94.3 MM HG (35-48)
[2021-02-15] MEDS: THEOPHYLLINE ER (24 HR) 400 MG CAPSULE PO SCH (09:52)
[2021-02-15] MEDS: POTASSIUM CHLORIDE 20 MEQ TABLET PO SCH ×3 (10:13→17:08)
[2021-02-15] MEDS: VALPROIC ACID INJ 1,000 MG in SODIUM CHLORIDE 0.9% 100 ML IV SCH (12:55)
[2021-02-15] MEDS: ATORVASTATIN 10 MG TABLET PO SCH (21:59)
[2021-02-15] MEDS: ENOXAPARIN 40 MG/0.4 ML SYRINGE SUBCUT SCH (22:00)
[2021-02-15] MEDS: traZODone 50 MG TABLET PO SCH (22:03)
[2021-02-16] MEDS: VALPROIC ACID INJ 1,000 MG in SODIUM CHLORIDE 0.9% 100 ML IV SCH ×3 (00:35→23:51)
[2021-02-16] MEDS: ALBUTEROL/IPRATROPIUM 3 ML NEB RESP TX SCH ×4 (01:00→19:00)
[2021-02-16 04:06] LABS: ABG Base Excess 12.7 MMOL/L (-2.5-2.5); ABG Oxygen Saturation 92.6 % (95-100); ABG PH 7.333 (7.35-7.45); ABG TCO2 43.4 MMOL/L (23-27); Allen Test Positive; Pt O2 Delivery Device BIPAP
[2021-02-16 04:47] LABS: Basophils % 0.1 % (0.0-0.8); Eosinophils # 0.1 10*3/uL (0.0-0.87); Eosinophils % 0.7 % (0.00-10.9); Hematocrit 29.5 VOL% (35.7-47.0); Hemoglobin 8.8 GM/DL (12.0-16.0); Immature Granulocytes % 1.7 %; Immature Granulocytes Absolute 0.12 #; Lymphocytes # 1.2 10*3/uL (1.4-4.0); Lymphocytes % 17.3 % (21.3-54.2); Mean Corpuscular HGB Conc 29.8 GM/DL (32-36); Mean Corpuscular Volume 110.5 FL (87-102); Monocytes % 9.7 % (1.7-12.7); NRBC # 0.05 10*3/uL; Neutrophils % 70.5 % (38.7-73.9); Platelet Count 205 T/CUMM (130-400); Red Blood Count 2.67 MC/CUMM (3.8-5.5); Red Cell Distribution Width 13.7 % (9.3-17.3)
[2021-02-16 05:00] LABS: Calcium 9.1 MG/DL (8.5-10.1); Osmolality,Calculated 281.4 MOS/KG (273-304)
[2021-02-16] MEDS: methylPREDNISolone SOD SUC 40 MG/1 ML VIAL IV SCH ×2 (05:02→18:16)
[2021-02-16] MEDS: INSULIN LISPRO 100 UNIT/ML SUBCUT SCH ×4 (06:02→17:24)
[2021-02-16] MEDS: BUDESONIDE 0.5 MG/2 ML NEB RESP TX SCH ×2 (06:55→19:00)
[2021-02-16] MEDS: ARFORMOTEROL 15 MCG/2 ML NEB RESP TX SCH ×2 (06:55→19:00)
[2021-02-16] MEDS: POTASSIUM CHLORIDE 20 MEQ TABLET PO SCH (08:23)
[2021-02-16] MEDS: FUROSEMIDE 40 MG/4 ML VIAL IV SCH (09:47)
[2021-02-16] MEDS: PHENYTOIN 100 MG/2 ML VIAL IV SCH ×2 (09:47→20:13)
[2021-02-16] MEDS: FAMOTIDINE 20 MG/2 ML VIAL IV SCH ×2 (09:49→20:12)
[2021-02-16] MEDS: EMTRICITAB RILPIVIR TENOFO ALA PO SCH (09:49)
[2021-02-16] MEDS: THEOPHYLLINE ER (24 HR) 400 MG CAPSULE PO SCH (09:50)
[2021-02-16] MEDS: SULFAMETHOX/TRIMETHOPRIM 800-160 MG TABLET PO SCH ×2 (09:50→20:10)
[2021-02-16] MEDS: INSULIN GLARGINE 100 UNIT/ML SUBCUT SCH (09:50)
[2021-02-16] MEDS: MAGNESIUM SULF RIDER 2 GM/50 ML PREMIX IV PRN (09:55)
[2021-02-16] MEDS: ATORVASTATIN 10 MG TABLET PO SCH (20:10)
[2021-02-16] MEDS: ENOXAPARIN 40 MG/0.4 ML SYRINGE SUBCUT SCH (20:13)
[2021-02-16] MEDS: traZODone 50 MG TABLET PO SCH (21:53)
[2021-02-17] MEDS: INSULIN LISPRO 100 UNIT/ML SUBCUT SCH ×5 (00:42→21:32)
[2021-02-17] MEDS: ALBUTEROL/IPRATROPIUM 3 ML NEB RESP TX SCH ×4 (00:43→18:17)
[2021-02-17 04:22] LABS: ABG Base Excess 12.8 MMOL/L (-2.5-2.5); ABG HCO3 35.9 MMOL/L (20-26); ABG Oxygen Saturation 65.2 % (95-100); ABG PCO2 50.5 MM HG (35-48); ABG PH 7.486 (7.35-7.45); ABG TCO2 34.9 MMOL/L (23-27)
[2021-02-17 04:25] LABS: ABG PO2 36.1 MM HG (80-95)
[2021-02-17 05:07] LABS: ABG Base Excess 13.1 MMOL/L (-2.5-2.5); ABG HCO3 36.8 MMOL/L (20-26); ABG Oxygen Saturation 90.1 % (95-100); ABG PCO2 51.9 MM HG (35-48); ABG PO2 60.6 MM HG (80-95); ABG TCO2 35.3 MMOL/L (23-27)
[2021-02-17 05:27] LABS: Basophils % 0.4 % (0.0-0.8); Eosinophils # 0.1 10*3/uL (0.0-0.87); Eosinophils % 0.6 % (0.00-10.9); Hematocrit 32.3 VOL% (35.7-47.0); Hemoglobin 10.1 GM/DL (12.0-16.0); Immature Granulocytes % 1.1 %; Immature Granulocytes Absolute 0.09 #; Lymphocytes # 1.4 10*3/uL (1.4-4.0); Lymphocytes % 17.7 % (21.3-54.2); Mean Corpuscular HGB Conc 31.3 GM/DL (32-36); Mean Corpuscular Volume 106.6 FL (87-102); Mean Platelet Volume 12.2 FL (9.6-12.0); Monocytes % 7.6 % (1.7-12.7); NRBC # 0.07 10*3/uL; Neutrophils % 72.6 % (38.7-73.9); Red Blood Count 3.03 MC/CUMM (3.8-5.5); Red Cell Distribution Width 13.6 % (9.3-17.3); White Blood Count 7.9 T/CUMM (4-12)
[2021-02-17 05:32] LABS: Platelet Count 127 T/CUMM (130-400)
[2021-02-17 05:41] LABS: Calcium 9.7 MG/DL (8.5-10.1); Osmolality,Calculated 266.5 MOS/KG (273-304); Potassium 3.5 MMOL/L (3.5-5.1)
[2021-02-17 05:46] LABS: Platelet Estimate Adequate
[2021-02-17 05:47] LABS: Anisocytosis 2+; Macrocytosis 1+
[2021-02-17] MEDS: methylPREDNISolone SOD SUC 40 MG/1 ML VIAL IV SCH ×2 (05:49→16:32)
[2021-02-17] MEDS: ARFORMOTEROL 15 MCG/2 ML NEB RESP TX SCH ×2 (07:35→18:17)
[2021-02-17] MEDS: BUDESONIDE 0.5 MG/2 ML NEB RESP TX SCH ×2 (07:35→18:17)
[2021-02-17] MEDS: EMTRICITAB RILPIVIR TENOFO ALA PO SCH (09:03)
[2021-02-17] MEDS: POTASSIUM BICARB EFFERVESCENT 20 MEQ TAB.EFF PER TUBE PRN (09:04)
[2021-02-17] MEDS: THEOPHYLLINE ER (24 HR) 400 MG CAPSULE PO SCH (09:04)
[2021-02-17] MEDS: LEVOFLOXACIN 750 MG TABLET PO SCH (09:04)
[2021-02-17] MEDS: INSULIN GLARGINE 100 UNIT/ML SUBCUT SCH (09:04)
[2021-02-17] MEDS: PHENYTOIN 100 MG/2 ML VIAL IV SCH (09:06)
[2021-02-17] MEDS: FUROSEMIDE 40 MG/4 ML VIAL IV SCH (09:15)
[2021-02-17] MEDS: FAMOTIDINE 20 MG/2 ML VIAL IV SCH ×2 (09:19→21:32)
[2021-02-17] MEDS: MAGNESIUM SULF RIDER 2 GM/50 ML PREMIX IV PRN (09:21)
[2021-02-17] MEDS: VALPROIC ACID INJ 1,000 MG in SODIUM CHLORIDE 0.9% 100 ML IV SCH (11:48)
[2021-02-17 12:47] LABS: Phenytoin (Dilantin) 5.6 UG/ML (10-20)
[2021-02-17] MEDS: MENTHOL/ZINC OXIDE OINT 71 GM JAR TOP SCH ×2 (13:38→21:32)
[2021-02-17] MEDS: traZODone 50 MG TABLET PO SCH (21:30)
[2021-02-17] MEDS: PHENYTOIN ER 100 MG CAPSULE PO SCH (21:30)
[2021-02-17] MEDS: ATORVASTATIN 10 MG TABLET PO SCH (21:30)
[2021-02-17] MEDS: levETIRAcetam 500 MG TABLET PO SCH (21:31)
[2021-02-17] MEDS: VALPROIC ACID 250 MG/5 ML UDCUP PO SCH (21:31)
[2021-02-18] MEDS: ALBUTEROL/IPRATROPIUM 3 ML NEB RESP TX SCH ×4 (00:45→19:12)
[2021-02-18] MEDS: methylPREDNISolone SOD SUC 40 MG/1 ML VIAL IV SCH ×2 (04:24→16:31)
[2021-02-18 05:47] LABS: Basophils % 0.2 % (0.0-0.8); Eosinophils # 0.1 10*3/uL (0.0-0.87); Eosinophils % 1.6 % (0.00-10.9); Hematocrit 29.3 VOL% (35.7-47.0); Hemoglobin 9.4 GM/DL (12.0-16.0); Immature Granulocytes % 1.6 %; Immature Granulocytes Absolute 0.09 #; Lymphocytes # 0.9 10*3/uL (1.4-4.0); Lymphocytes % 16.7 % (21.3-54.2); Mean Corpuscular HGB Conc 32.1 GM/DL (32-36); Mean Corpuscular Volume 106.2 FL (87-102); Mean Platelet Volume 10.4 FL (9.6-12.0); Monocytes % 8.2 % (1.7-12.7); NRBC # 0.06 10*3/uL; Neutrophils % 71.7 % (38.7-73.9); Platelet Count 155 T/CUMM (130-400); Red Blood Count 2.76 MC/CUMM (3.8-5.5); Red Cell Distribution Width 14.1 % (9.3-17.3); White Blood Count 5.5 T/CUMM (4-12)
[2021-02-18 06:06] LABS: Potassium 2.9 MMOL/L (3.5-5.1)
[2021-02-18] MEDS: POTASSIUM BICARB EFFERVESCENT 20 MEQ TAB.EFF PER TUBE PRN (06:36)
[2021-02-18] MEDS: BUDESONIDE 0.5 MG/2 ML NEB RESP TX SCH ×2 (07:43→19:12)
[2021-02-18] MEDS: ARFORMOTEROL 15 MCG/2 ML NEB RESP TX SCH ×2 (07:43→19:12)
[2021-02-18] MEDS: levETIRAcetam 500 MG TABLET PO SCH ×2 (08:48→21:59)
[2021-02-18] MEDS: POTASSIUM CHLORIDE 20 MEQ TABLET PO PRN ×3 (08:48→12:25)
[2021-02-18] MEDS: LEVOFLOXACIN 750 MG TABLET PO SCH (08:48)
[2021-02-18] MEDS: THEOPHYLLINE ER (24 HR) 400 MG CAPSULE PO SCH (08:48)
[2021-02-18] MEDS: PHENYTOIN ER 100 MG CAPSULE PO SCH ×2 (08:49→21:59)
[2021-02-18] MEDS: VALPROIC ACID 250 MG/5 ML UDCUP PO SCH ×2 (08:49→21:59)
[2021-02-18] MEDS: EMTRICITAB RILPIVIR TENOFO ALA PO SCH (08:50)
[2021-02-18] MEDS: MAGNESIUM SULF RIDER 2 GM/50 ML PREMIX IV PRN (08:53)
[2021-02-18] MEDS: INSULIN LISPRO 100 UNIT/ML SUBCUT SCH ×4 (08:54→22:01)
[2021-02-18] MEDS: INSULIN GLARGINE 100 UNIT/ML SUBCUT SCH (08:54)
[2021-02-18] MEDS: FAMOTIDINE 20 MG/2 ML VIAL IV SCH ×2 (08:55→22:00)
[2021-02-18] MEDS: FUROSEMIDE 40 MG/4 ML VIAL IV SCH (08:58)
[2021-02-18] MEDS: MENTHOL/ZINC OXIDE OINT 71 GM JAR TOP SCH ×2 (09:01→22:01)
[2021-02-18] MEDS: traZODone 50 MG TABLET PO SCH (21:59)
[2021-02-18] MEDS: ATORVASTATIN 10 MG TABLET PO SCH (21:59)
[2021-02-19] MEDS: methylPREDNISolone SOD SUC 40 MG/1 ML VIAL IV SCH ×2 (04:09→16:09)
[2021-02-19] MEDS: ARFORMOTEROL 15 MCG/2 ML NEB RESP TX SCH (06:53)
[2021-02-19] MEDS: ALBUTEROL/IPRATROPIUM 3 ML NEB RESP TX SCH ×3 (06:53→15:35)
[2021-02-19] MEDS: BUDESONIDE 0.5 MG/2 ML NEB RESP TX SCH (06:53)
[2021-02-19] MEDS: FAMOTIDINE 20 MG/2 ML VIAL IV SCH (09:53)
[2021-02-19] MEDS: LEVOFLOXACIN 750 MG TABLET PO SCH (09:54)
[2021-02-19] MEDS: VALPROIC ACID 250 MG/5 ML UDCUP PO SCH (09:54)
[2021-02-19] MEDS: THEOPHYLLINE ER (24 HR) 400 MG CAPSULE PO SCH (09:54)
[2021-02-19] MEDS: PHENYTOIN ER 100 MG CAPSULE PO SCH (09:54)
[2021-02-19] MEDS: INSULIN GLARGINE 100 UNIT/ML SUBCUT SCH (09:54)
[2021-02-19] MEDS: FUROSEMIDE 40 MG/4 ML VIAL IV SCH (09:55)
[2021-02-19] MEDS: MENTHOL/ZINC OXIDE OINT 71 GM JAR TOP SCH (09:55)
[2021-02-19] MEDS: EMTRICITAB RILPIVIR TENOFO ALA PO SCH (09:55)
[2021-02-19] MEDS: levETIRAcetam 500 MG TABLET PO SCH (09:55)
[2021-02-19] MEDS: INSULIN LISPRO 100 UNIT/ML SUBCUT SCH ×3 (09:56→15:46)
[2021-02-19] MEDS ORDERED: AMIODARONE 450 MG/9 ML VIAL IV ONE (16:56)
[2021-02-19] MEDS ORDERED: ETOMIDATE 20 MG/10 ML VIAL IV ONE (17:06)
[2021-02-19 17:08] VITALS: BP 107/66
[2021-02-19] MEDS ORDERED: SUCCINYLCHOLINE 200 MG/10 ML VIAL ONE (17:08)
[2021-02-19 17:14] LABS: Basophils % 0.2 % (0.0-0.8); Eosinophils # 0.1 10*3/uL (0.0-0.87); Eosinophils % 1.2 % (0.00-10.9); Hematocrit 33.2 VOL% (35.7-47.0); Hemoglobin 10.5 GM/DL (12.0-16.0); Immature Granulocytes % 1.4 %; Immature Granulocytes Absolute 0.15 #; Mean Corpuscular HGB Conc 31.6 GM/DL (32-36); Mean Corpuscular Volume 105.4 FL (87-102); Mean Platelet Volume 12.2 FL (9.6-12.0); Monocytes % 8.1 % (1.7-12.7); NRBC # 0.16 10*3/uL; Neutrophils % 62.1 % (38.7-73.9); Platelet Count 139 T/CUMM (130-400); Red Blood Count 3.15 MC/CUMM (3.8-5.5); Red Cell Distribution Width 14.8 % (9.3-17.3)
[2021-02-19] MEDS ORDERED: DEXMEDETOMIDINE 400 MCG in SODIUM CHLORIDE 0.9% 96 ML IV PRN (17:16)
[2021-02-19 17:27] LABS: Alanine Aminotransferase 95 U/L (13-56); Albumin 2.6 G/DL (3.4-5.0); Alkaline Phosphatase 149 U/L (45-117); Aspartate Amino Transferase 98 U/L (0-37); Bilirubin,Total < 0.39 MG/DL (0.20-1.00); Blood Urea Nitrogen 28 MG/DL (7-18); Calcium 9.7 MG/DL (8.5-10.1); Carbon Dioxide 33 MMOL/L (21-32); Estimated Glom Filtration Rate 78 ML/MIN; Glucose 106 MG/DL (74-106); Osmolality,Calculated 271.4 MOS/KG (273-304); Potassium 3.6 MMOL/L (3.5-5.1); Sodium 133 MMOL/L (136-145); Total Protein 7.9 G/DL (6.4-8.2)
[2021-02-19] MEDS ORDERED: EPINEPHrine 1 MG/10 ML SYRINGE ONE (17:32)
[2021-02-19] MEDS ORDERED: SODIUM BICARBONATE 10 MEQ/10 ML SYRINGE IV ONE (17:32)
== END 2021-02-19 17:38 | disposition expired | DRG 974 ==
LOC: EDUNIT# → EDBD → N.ED 15:37 → N.EDINP 18:39 → SUATTDRO 18:39 → N.CC 22:20 → N.ICU 01-25 19:43 → N.TELEN 02-18 15:20 → N.ICU 02-19 17:21
PROVIDERS: ADMIT Family Medicine; ATTEND Internal Medicine